=== PATIENT | male | born 1960 | race Caucasian/White ===

== ENCOUNTER 2020-08-06 09:36 | Outpatient (CLI) | payer BC, SELFPAY ==
[2020-08-06 10:10] LABS: Basophils Absolute Auto 0.1 K/mm3 (0.0-0.1); Basophils Percent Auto 1.7 % (0.2-1.2); Eosinophils Absolute Auto 0.2 K/mm3 (0-0.3); Eosinophils Percent Auto 4.2 % (0-4.4); Hematocrit 41.3 % (42.0-52.0); Hemoglobin 12.7 g/dL (14.0-18.0); Immature Granulocyte Absolute 0.01 K/mm3 (0.00-0.031); Immature Granulocyte Percent A 0.2 % (0-0.5); Lymphocytes Absolute Auto 1.43 K/mm3 (0.9-3.2); Lymphocytes Percent Auto 30.2 % (18.3-44.2); Mean Corpuscular HGB Conc 30.8 g/dl (32-36); Mean Corpuscular Volume 81.3 fl (80-100); Mean Platelet Volume 10.7 fl (7.4-10.4); Monocytes Absolute Auto 0.7 K/mm3 (0.1-0.6); Monocytes Percent Auto 14.6 % (2.6-8.5); Neutrophils Absolute Auto 2.3 K/mm3 (1.3-6.7); Neutrophils Percent Auto 49.1 % (45.5-73.1); Platelet Count Result 218 k/mm3 (150-375); Red Blood Count 5.08 M/mm3 (4.6-6.20); Red Cell Distribution Width 22.4 % (11.5-14.5); White Blood Count 4.7 K/mm3 (4.5-10.0)
[2020-08-06 10:18] LABS: Hemoglobin A1C 5.5 % (<5.7)
[2020-08-06 10:29] LABS: Alanine Aminotransferase 31 U/L (4-50); Albumin Level 4.1 g/dL (3.5-5.1); Alkaline Phosphatase 77 U/L (38-126); Anion Gap 6 mmol/L (8-16); Aspartate Amino Transferase 47 U/L (17-59); Blood Urea Nitrogen 18 mg/dL (9-20); Calcium 9.2 mg/dL (8.4-10.2); Carbon Dioxide 26 mmol/L (22-30); Chloride 106 mmol/L (98-107); Estimated Glomerular Filt Rate > 60; Glucose 106 mg/dL (75-110); Magnesium 1.6 mg/dL (1.6-2.3); Potassium 4.1 mmol/L (3.4-5.0); Sodium 138 mmol/L (137-145)
[2020-08-06 10:33] LABS: Iron 77 ug/dL (49-181)
[2020-08-06 10:44] LABS: Percent Iron Saturation 17 % (20-50)
[2020-08-06 10:50] LABS: Free T4 Free Thyroxine 0.77 ng/mL (0.78-2.19)
[2020-08-06 11:31] LABS: Folic Acid 6.4 ng/mL (2.76->20)
== END 2020-08-06 09:37 | disposition home or self-care (01) ==
PROVIDERS: PCP Internal Medicine; Visit Provider Internal Medicine
DX: D64.9 Anemia, unspecified (principal); I10 Essential (primary) hypertension; R73.9 Hyperglycemia, unspecified; E03.9 Hypothyroidism, unspecified
CPT/HCPCS: 36415; 80053; 82607; 82746; 83036; 83540; 83550; 83735; 84439; 84443; 85025

== ENCOUNTER 2020-11-12 08:29 | Emergency (ER) | payer BC, SELFPAY ==
[2020-11-12 08:38] VITALS: BP 153/89; PULSE 81; RESP 18; TEMP 37.1; O2SAT 96
--- NOTE | 2020-11-12 08:38 | ED.GENADULT ---
HPI - General Adult General Chief complaint: Skin/Abscess/Foreign Body Stated complaint: Cyst on back Time Seen by Provider: 11/12/20 08:38 Source: patient Mode of arrival: ambulatory Limitations: no limitations History of Present Illness HPI narrative: 60-year-old male patient presents to the [facility] with complaints of a wound to the upper back for the past week. Patient states he has been putting Neosporin on it and trying to clean it but has been getting bigger and worse. Denies any fevers, body aches or chills. Patient denies any history of diabetes. Related Data Home Medications Medication Instructions Recorded Confirmed metoprolol succinate [Toprol XL] 50 mg PO DAILY 11/12/20 11/12/20 Allergies Allergy/AdvReac Type Severity Reaction Status Date / Time No Known Allergies Allergy Verified 11/12/20 08:45 Review of Systems Review of Systems: Narrative: CONSTITUTIONAL: Denies fever, chills, or sweats. EYES: Denies visual changes, redness, or discharge. ENT: Denies rhinorrhea, congestion, sore throat, or otalgia. CARDIOVASCULAR: Denies chest pain, palpitations, or edema. RESPIRATORY: Denies cough or dyspnea. GASTROINTESTINAL: Denies abdominal pain, nausea, vomiting, or diarrhea. GENITOURINARY: Denies dysuria or hematuria. SKIN: Denies rash or itching. Positive wound to left upper back x1 week MUSCULOSKELETAL: Denies back pain, joint pain, or myalgia. NEUROLOGIC: Denies headache, numbness, or weakness. PSYCHIATRIC: Denies anxiety or depression. [facility] Past Medical History Medical History Arthritis Hypertension Prostate disease Surgical History Surgical History H/O hernia repair Family History Family History Mother Family history of Alzheimer's disease, Onset Age: 77 Sibling Family history of malignant neoplasm of breast in first degree relative Patient's sister is in good health Father Cerebrovascular accident, Onset Age: 62 Family history of thoracic aortic aneurysm Other Family history of malignant neoplasm Social History Social History Smoking status: Never smoker Second hand tobacco smoke exposure: No Alcohol intake: current Gender identity (if verbalized by the patient): Male Comments At the time of my signature I agree with nursing past medical history, surgical, social, and family history. There is no relevant family history pertinent to the presenting complaint. Exam Narrative: Exam Narrative: GENERAL: Well-appearing, well-nourished, and in no acute distress. HEAD: Normocephalic, atraumatic. EYES: PERRLA and EOMI. ENT: Nares clear, no rhinorrhea or epistaxis. Mucous membranes moist. NECK: Supple. No lymphadenopathy CHEST: Clear to auscultation. No respiratory distress. HEART: Regular rate and rhythm. No murmur heard. Normal peripheral pulses. ABDOMEN: Soft, nontender, nondistended, normal active bowel sounds. EXTREMITIES: Normal range of motion. No edema. SKIN: Warm, dry, no rash. Patient has approximately 4 x 4 centimeter infected cyst or abscess noted to the left upper back. There is some surrounding erythema. No warmth noted. It is slightly raised with a little bit of clear drainage coming from it. NEURO: No focal deficits. Alert and oriented x3. Course Vital Signs Vital signs: Vital Signs Temperature 37.1 C 11/12/20 08:38 Pulse Rate 81 11/12/20 08:38 Respiratory Rate 18 11/12/20 08:38 Blood Pressure 153/89 H 11/12/20 08:38 Pulse Oximetry 96 11/12/20 08:38 Temperature 37.1 C 11/12/20 08:38 Pulse Rate 81 11/12/20 08:38 Respiratory Rate 18 11/12/20 08:38 Blood Pressure 153/89 H 11/12/20 08:38 Pulse Oximetry 96 11/12/20 08:38 Vital signs reviewed The patient has been informed that they may have
== END 2020-11-12 09:10 | disposition home or self-care (01) ==
PROVIDERS: Emergency Provider Nurse Practitioner Family; PCP Internal Medicine
DX: L02.212 Cutaneous abscess of back [any part, except buttock and flank] (principal); M19.90 Unspecified osteoarthritis, unspecified site; I10 Essential (primary) hypertension
CPT/HCPCS: 10060; 87070; 87205; 99213; G0463

== ENCOUNTER 2021-03-11 14:13 | Outpatient (CLI) | payer OTHER, SELFPAY ==
[2021-03-11 14:51] LABS: Basophils Absolute Auto 0.1 K/mm3 (0.0-0.1); Basophils Percent Auto 1.2 % (0.2-1.2); Eosinophils Absolute Auto 0.1 K/mm3 (0-0.3); Eosinophils Percent Auto 2.2 % (0-4.4); Hemoglobin 7.2 g/dL (14.0-18.0); Immature Granulocyte Absolute 0.03 K/mm3 (0.00-0.031); Immature Granulocyte Percent A 0.5 % (0-0.5); Lymphocytes Absolute Auto 1.13 K/mm3 (0.9-3.2); Lymphocytes Percent Auto 19.3 % (18.3-44.2); Mean Corpuscular Hemoglobin 25.5 pg (26-34); Mean Corpuscular Volume 85.1 fl (80-100); Mean Platelet Volume 11.5 fl (7.4-10.4); Monocytes Absolute Auto 0.8 K/mm3 (0.1-0.6); Monocytes Percent Auto 14.3 % (2.6-8.5); Neutrophils Absolute Auto 3.7 K/mm3 (1.3-6.7); Neutrophils Percent Auto 62.5 % (45.5-73.1); Platelet Count Result 196 k/mm3 (150-375); Red Blood Count 2.82 M/mm3 (4.6-6.20); Red Cell Distribution Width 20.6 % (11.5-14.5); White Blood Count 5.9 K/mm3 (4.5-10.0)
[2021-03-11 15:00] LABS: Alanine Aminotransferase 26 U/L (4-50); Albumin Level 3.3 g/dL (3.5-5.1); Alkaline Phosphatase 110 U/L (38-126); Anion Gap 4 mmol/L (8-16); Aspartate Amino Transferase 82 U/L (17-59); Bilirubin,Total 1.6 mg/dL (0.2-1.3); Blood Urea Nitrogen 10 mg/dL (9-20); Calcium 8.5 mg/dL (8.4-10.2); Carbon Dioxide 29 mmol/L (22-30); Chloride 105 mmol/L (98-107); Cholesterol 135 mg/dL (0-200); Estimated Glomerular Filt Rate > 60; Glucose 115 mg/dL (75-110); HDL Direct 20 mg/dL; Potassium 3.8 mmol/L (3.4-5.0); Sodium 138 mmol/L (137-145); Triglycerides 71 mg/dL (<150)
[2021-03-11 15:09] LABS: LDL Cholesterol Direct 105 mg/dL
[2021-03-11 15:20] LABS: Iron 17 ug/dL (49-181)
[2021-03-11 15:29] LABS: Percent Iron Saturation 4 % (20-50); Prostate Specific Antigen < 0.1 ng/mL (< OR = 4.0)
[2021-03-11 15:37] LABS: Free T4 Free Thyroxine 0.95 ng/mL (0.78-2.19)
[2021-03-11 16:03] LABS: Folic Acid 4.2 ng/mL (2.76->20)
== END 2021-03-11 14:14 | disposition home or self-care (01) ==
PROVIDERS: PCP Internal Medicine; Visit Provider Internal Medicine
DX: D64.9 Anemia, unspecified (principal); E78.5 Hyperlipidemia, unspecified; E03.9 Hypothyroidism, unspecified; R53.83 Other fatigue; Z12.5 Encounter for screening for malignant neoplasm of prostate
CPT/HCPCS: 36415; 80053; 80061; 82607; 82746; 83540; 83550; 84153; 84439; 84443; 85025; G0103

== ENCOUNTER → 2021-03-16 07:53 | Outpatient (CLI) | payer OTHER, SELFPAY ==
--- NOTE | ~2021-03-16 | US_ITS ---
EXAMINATION: US abdomen complete DATE: 03/16/2021 08:32 INDICATION: Unspecified cirrhosis of liver. TECHNIQUE: Multiple grayscale and Doppler ultrasound images of the abdomen were obtained. COMPARISON: CT abdomen and pelvis 08/29/2016 FINDINGS: The liver demonstrates diffuse steatosis. There is normal flow in main portal vein. There i s a paraumbilical portacaval shunt. There is mild splenomegaly measuring 13.3 cm. The kidneys are nor mal in size. The gallbladder is normal in size and contains gallstones. No gallbladder wall thickenin g or sonographic [place] sign. The common duct is normal and measures 5 mm. The visualized portion of the abdominal aorta is normal in caliber. The inferior vena cava is not well-visualized. IMPRESSION: 1. Diffuse hepatic steatosis. 2. Portal venous hypertension. 3. Cholelithiasis. No evidence of acute cholecystitis. Reviewed, dictated and finalized at location B.
== END ==
PROVIDERS: PCP Internal Medicine; Visit Provider Internal Medicine
DX: K74.60 Unspecified cirrhosis of liver (principal); K80.20 Calculus of gallbladder without cholecystitis without obstruction; K76.0 Fatty (change of) liver, not elsewhere classified; K76.6 Portal hypertension
CPT/HCPCS: 76700

== ENCOUNTER 2021-03-25 07:52 | Outpatient (CLI) | payer OTHER, SELFPAY ==
[2021-03-25 08:04] LABS: Basophils Absolute Auto 0.1 K/mm3 (0.0-0.1); Basophils Percent Auto 1.3 % (0.2-1.2); Eosinophils Absolute Auto 0.3 K/mm3 (0-0.3); Eosinophils Percent Auto 4.7 % (0-4.4); Hematocrit 31.8 % (42.0-52.0); Hemoglobin 9.4 g/dL (14.0-18.0); Immature Granulocyte Absolute 0.02 K/mm3 (0.00-0.031); Immature Granulocyte Percent A 0.3 % (0-0.5); Lymphocytes Absolute Auto 1.92 K/mm3 (0.9-3.2); Lymphocytes Percent Auto 32.3 % (18.3-44.2); Mean Corpuscular HGB Conc 29.6 g/dl (32-36); Mean Corpuscular Hemoglobin 25.1 pg (26-34); Mean Corpuscular Volume 84.8 fl (80-100); Mean Platelet Volume 11.1 fl (7.4-10.4); Monocytes Absolute Auto 0.6 K/mm3 (0.1-0.6); Monocytes Percent Auto 10.6 % (2.6-8.5); Neutrophils Percent Auto 50.8 % (45.5-73.1); Platelet Count Result 284 k/mm3 (150-375); Red Blood Count 3.75 M/mm3 (4.6-6.20); White Blood Count 5.9 K/mm3 (4.5-10.0)
[2021-03-25 08:22] LABS: Hypochromasia 2+ (NORMAL); Platelet Estimate Adequate (Adequate)
[2021-03-25 08:27] LABS: Anisocytosis 1+ (NORMAL); Ovalocytes 1+ (NORMAL); Stomatocytes 1+ (NORMAL); Tear Drop Cells 1+ (NORMAL)
[2021-03-25 08:43] LABS: Alanine Aminotransferase 30 U/L (4-50); Albumin Level 3.7 g/dL (3.5-5.1); Alkaline Phosphatase 81 U/L (38-126); Anion Gap 5 mmol/L (8-16); Aspartate Amino Transferase 73 U/L (17-59); Blood Urea Nitrogen 12 mg/dL (9-20); Calcium 9.5 mg/dL (8.4-10.2); Carbon Dioxide 29 mmol/L (22-30); Chloride 106 mmol/L (98-107); Estimated Glomerular Filt Rate > 60; Glucose 119 mg/dL (75-110); Iron 23 ug/dL (49-181); Potassium 4.3 mmol/L (3.4-5.0); Sodium 140 mmol/L (137-145)
[2021-03-25 09:15] LABS: Percent Iron Saturation 5 % (20-50)
[2021-03-25 10:04] LABS: Folic Acid 5.2 ng/mL (2.76->20)
== END 2021-03-25 07:53 | disposition home or self-care (01) ==
PROVIDERS: PCP Internal Medicine; Visit Provider Internal Medicine
DX: D64.9 Anemia, unspecified (principal); K74.60 Unspecified cirrhosis of liver
CPT/HCPCS: 36415; 80053; 82607; 82746; 83540; 83550; 85025

== ENCOUNTER 2021-07-01 14:08 | Outpatient (CLI) | payer OTHER, SELFPAY ==
[2021-07-01 14:33] LABS: Basophils Percent Auto 1.2 % (0.2-1.2); Eosinophils Absolute Auto 0.1 K/mm3 (0-0.3); Eosinophils Percent Auto 3.1 % (0-4.4); Hematocrit 37.9 % (42.0-52.0); Hemoglobin 11.5 g/dL (14.0-18.0); Immature Granulocyte Absolute 0.01 K/mm3 (0.00-0.031); Immature Granulocyte Percent A 0.3 % (0-0.5); Lymphocytes Absolute Auto 1.21 K/mm3 (0.9-3.2); Lymphocytes Percent Auto 37.1 % (18.3-44.2); Mean Corpuscular HGB Conc 30.3 g/dl (32-36); Mean Corpuscular Hemoglobin 24.8 pg (26-34); Mean Corpuscular Volume 81.9 fl (80-100); Mean Platelet Volume 9.5 fl (7.4-10.4); Monocytes Absolute Auto 0.5 K/mm3 (0.1-0.6); Neutrophils Absolute Auto 1.4 K/mm3 (1.3-6.7); Neutrophils Percent Auto 42.3 % (45.5-73.1); Platelet Count Result 128 k/mm3 (150-375); Red Blood Count 4.63 M/mm3 (4.6-6.20); Red Cell Distribution Width 18.8 % (11.5-14.5); White Blood Count 3.3 K/mm3 (4.5-10.0)
[2021-07-01 16:47] LABS: Alanine Aminotransferase 54 U/L (4-50); Alkaline Phosphatase 126 U/L (38-126); Anion Gap 11 mmol/L (8-16); Aspartate Amino Transferase 128 U/L (17-59); Bilirubin,Total 2.2 mg/dL (0.2-1.3); Blood Urea Nitrogen 7 mg/dL (9-20); Calcium 8.9 mg/dL (8.4-10.2); Carbon Dioxide 26 mmol/L (22-30); Chloride 105 mmol/L (98-107); Cholesterol 211 mg/dL (0-200); Estimated Glomerular Filt Rate > 60; Glucose 106 mg/dL (65-110); HDL Direct 65 mg/dL; Potassium 3.5 mmol/L (3.4-5.0); Sodium 142 mmol/L (137-145); Triglycerides 95 mg/dL (<150)
[2021-07-01 16:48] LABS: Iron 47 ug/dL (49-181)
[2021-07-01 17:06] LABS: LDL Cholesterol Direct 104 mg/dL
[2021-07-01 17:39] LABS: Percent Iron Saturation 11 % (20-50)
[2021-07-01 18:34] LABS: Folic Acid 2.1 ng/mL (2.76->20)
== END 2021-07-01 14:09 | disposition home or self-care (01) ==
LOC: ANHLAB 14:10
PROVIDERS: PCP Internal Medicine; Visit Provider Internal Medicine
DX: R53.83 Other fatigue (principal); K74.60 Unspecified cirrhosis of liver; D64.9 Anemia, unspecified; E78.5 Hyperlipidemia, unspecified
CPT/HCPCS: 36415; 80053; 80061; 82607; 82746; 83540; 83550; 84443; 85025

== ENCOUNTER 2021-07-26 20:51 | Observation (INO) | payer OTHER, SELFPAY ==
[2021-07-26 21:07] VITALS: BP 156/60; PULSE 95; RESP 18; TEMP 37.7; O2SAT 98
[2021-07-26 21:40] LABS: Basophils Percent Auto 0.4 % (0.2-1.2); Eosinophils Percent Auto 0.1 % (0-4.4); Hematocrit 31.4 % (42.0-52.0); Hemoglobin 9.7 g/dL (14.0-18.0); Immature Granulocyte Absolute 0.05 K/mm3 (0.00-0.031); Immature Granulocyte Percent A 0.7 % (0-0.5); Immature Platelet Fraction Pct 8.3 % (0.9-11.2); Lymphocytes Absolute Auto 0.83 K/mm3 (0.9-3.2); Lymphocytes Percent Auto 10.8 % (18.3-44.2); Mean Corpuscular HGB Conc 30.9 g/dl (32-36); Mean Corpuscular Hemoglobin 25.5 pg (26-34); Mean Corpuscular Volume 82.4 fl (80-100); Monocytes Absolute Auto 0.7 K/mm3 (0.1-0.6); Monocytes Percent Auto 9.1 % (2.6-8.5); Neutrophils Percent Auto 78.9 % (45.5-73.1); Platelet Count Result 136 k/mm3 (150-375); Red Blood Count 3.81 M/mm3 (4.6-6.20); Red Cell Distribution Width 22.9 % (11.5-14.5); White Blood Count 7.7 K/mm3 (4.5-10.0)
[2021-07-26 21:48] LABS: INR 1.8; Prothrombin Time 20.2 Seconds (11.1-14.7)
[2021-07-26 21:49] LABS: Partial Thromboplastin Time 37.5 SECONDS (22.3-36.8)
[2021-07-26 21:50] LABS: Alanine Aminotransferase 49 U/L (4-50); Albumin Level 3.8 g/dL (3.5-5.1); Alkaline Phosphatase 93 U/L (38-126); Anion Gap 9 mmol/L (8-16); Aspartate Amino Transferase 124 U/L (17-59); Bilirubin,Total 6.1 mg/dL (0.2-1.3); Blood Urea Nitrogen 27 mg/dL (9-20); Calcium 8.7 mg/dL (8.4-10.2); Carbon Dioxide 27 mmol/L (22-30); Chloride 98 mmol/L (98-107); Estimated CRCL calculation 129 ml/min; Estimated Glomerular Filt Rate > 60; Glucose 124 mg/dL (65-110); Potassium 3.2 mmol/L (3.4-5.0); Sodium 134 mmol/L (137-145)
[2021-07-27] VITALS (27 sets, daily range): BP systolic 120–176; BP diastolic 52–96; PULSE 73–110; RESP 12–24; TEMP 36.4–37.7; O2SAT 94–100; BMI 43.0
--- NOTE | 2021-07-27 00:33 | ED.GIBLEED ---
HPI - GI Bleed General Chief complaint: GI Bleed Stated complaint: bleeding ulcer Time Seen by Provider: 07/27/21 00:29 Source: patient Mode of arrival: ambulatory Limitations: no limitations History of Present Illness HPI Narrative: Patient is a 60-year-old male complaining of dark tarry stool and nausea and vomiting that started Sunday. Patient states that he had blood in his vomitus and today. Patient states that he had abdominal pain earlier but now resolved. Patient denies being on any oral anticoagulants. Patient states that he has a history of bleeding ulcer , and was seen evaluated by Dr. Hollis in the past. Patient denies any chest pain, shortness of breath, fever or chills. Related Data Allergies Allergy/AdvReac Type Severity Reaction Status Date / Time No Known Allergies Allergy Verified 07/27/21 00:38 Review of Systems Review of Systems: All systems reviewed & are unremarkable except as noted in HPI and below Constitutional: Constitutional: Denies body ache(s), Denies chills, Denies excessive sweating, Denies fatigue, Denies fever(s), Denies headache(s), Denies lethargy, Denies malaise, Denies weakness and Denies weight loss Eyes: Eyes: Denies blurry vision, Denies change in vision and Denies loss of vision ENT: Denies dizziness, Denies ear discharge, Denies headache(s), Denies lip swelling, Denies epistaxis, Denies nasal congestion, Denies neck pain, Denies throat swelling and Denies tongue swelling Cardiovascular: Cardiovascular: Denies chest pain, Denies chest pain at rest, Denies chest pain with activity, Denies diaphoresis, Denies rapid heart rate, Denies edema, Denies irregular heart rhythm, Denies lightheadedness, Denies palpitations, Denies dyspnea and Denies dyspnea on exertion Respiratory: Respiratory: Denies chest congestion, Denies cough, Denies hemoptysis, Denies dyspnea and Denies dyspnea on exertion Gastrointestinal: Gastrointestinal: Denies abdominal pain, Denies hematochezia and Denies diarrhea Musculoskeletal: Musculoskeletal: Denies abnormal gait, Denies deformity, Denies joint swelling, Denies limited range of motion, Denies neck pain and Denies numbness Neurologic: Denies Abnormal speech present, Denies abnormal gait, Denies confusion, Denies dizziness, Denies headache(s), Denies focal weakness, Denies loss of vision, Denies numbness, Denies Other visual disturbances, Denies Sensory deficit (Neuro) and Denies weakness Psychiatric: Psychiatric: Denies confusion, Denies depression, Denies auditory hallucinations, Denies homicidal ideation and Denies suicidal ideation Endocrine: Endocrine: Denies cold intolerance, Denies excessive sweating, Denies fatigue, Denies heat intolerance and Denies palpitations Hematologic/Lymphatic: Hematologic/Lymphatic: Denies easy bleeding and Denies easy bruising Allergic/Immunologic: Allergic/Immunologic: Denies lip swelling, Denies throat swelling and Denies tongue swelling PMFSH Past Medical History Medical History Arthritis Hypertension Prostate disease Surgical History Surgical History H/O hernia repair Family History Family History Mother Family history of Alzheimer's disease, Onset Age: 77 Sibling Family history of malignant neoplasm of breast in first degree relative Patient's sister is in good health Father Cerebrovascular accident, Onset Age: 62 Family history of thoracic aortic aneurysm Other Family history of malignant neoplasm Social History Social History Smoking status: Never smoker Second hand tobacco smoke exposure: No Alcohol intake: current Gender identity (if verbalized by the patient): Male Comments Past medical history: GI bleed, hypertension, alcohol abuse Social history: Non-smoke
--- NOTE | 2021-07-27 00:39 | PC.NURSE ---
Pt unable to confirm medication or medical Hx. States My doctor put me on a bunch of pills, but i got tired of taking them
[2021-07-27] MEDS: SODIUM CHLORIDE 0.9% IV 1,000 ML 999 ML IV CONT (01:10)
[2021-07-27] MEDS: PROMETHAZINE HCL 25 MG/ML AMPUL 12.5 MG IV PUSH (01:10)
[2021-07-27] MEDS: PANTOPRAZOLE SODIUM IV 40 MG VIAL 80 MG IV PUSH (01:12)
--- NOTE | 2021-07-27 04:29 | PC.NURSE ---
This patient, Kate Klein, was admitted to IMU Room 204-01 on 07/27/21 at 0420. Patient family oriented to hospital policies and general routines including// ID bracelet, bed and alarms, visiting hours, pain management, procedures, bathroom and other care routines, personal items, smoking policy, room service/diet, and visiting hours. Information on how to activate the Rapid Response Team has been discussed. Patient/Family are encouraged to report perceived risks to care and to ask questions if they do not understand what they are told or what they should do.
[2021-07-27 04:56] LABS: Hematocrit 29.4 % (42.0-52.0)
[2021-07-27] MEDS: LACTATED RINGERS 1,000 ML 125 ML IV CONT (05:00)
--- NOTE | 2021-07-27 05:12 | PM.IMHP ---
H&P: HPI History of Present Illness Date/Time: 07/27/21 05:12 Chief Complaint: Hematemesis Narrative: This is a 60-year-old male with past medical history significant for arthritis, hypertension, benign prostatic hyperplasia, alcohol dependence, patient drinks a 5th of whiskey daily. According to the patient he had some lab work done about a month ago and his doctor asked him to come to the hospital however he did not come to the hospital he presented today to the emergency room after he has been having episodes of melena and hematemesis for the last 3-4 days he was feeling dizzy, lightheaded having nausea and vomiting as well and having abdominal discomfort. He has seen Dr. Alvarez in the past and states that has history of bleeding ulcer as well. Patient was seen in his primary care physician's office due to ongoing melena and had been advised to follow-up with his GI doctor but he did not follow-up. Preliminary workup shows a hemoglobin of 9.7 and repeat hemoglobin is 9. Review of Systems Review of Systems: Nausea vomiting abdominal discomfort hematemesis and melena Constitutional: Constitutional: Denies chills, Denies fever(s), Denies malaise and Denies weakness Eyes: Eyes: Denies change in vision ENT: Denies dysphagia, Denies nasal congestion, Denies nasal discharge, Denies nasal obstruction and Denies odynophagia Cardiovascular: Cardiovascular: Denies chest pain at rest, Denies irregular heart rhythm, Denies claudication, Denies leg edema, Denies radiating jaw, neck or arm pain, Denies palpitations, Denies dyspnea and Denies dyspnea on exertion Respiratory: Respiratory: Denies cough and Denies dyspnea Gastrointestinal: Gastrointestinal: Reports melena, Denies heartburn, Reports nausea, Reports vomiting and Reports hematemesis Genitourinary: Genitourinary: Reports no additional male genitourinary complaints Musculoskeletal: Musculoskeletal: Reports no additional musculoskeletal complaints Integumentary/Breasts: Skin/Breast: Reports system reviewed and no additional complaints, except as docu Neurologic: Reports system reviewed and no additional complaints, except as documented Psychiatric: Psychiatric: Reports no additional psychiatric complaints Endocrine: Endocrine: Reports no additional endocrine complaints Hematologic/Lymphatic: Hematologic/Lymphatic: Reports no additional hematologic/lymphatic complaints Allergic/Immunologic: Allergic/Immunologic: Reports no additional allergic/immunologic complaints PMFSH Past Medical History Medical History Arthritis Hypertension Prostate disease Surgical History Surgical History H/O hernia repair Family History Family History (Updated 07/27/21 @ 04:37 by Kristine Corrales RN) Mother Family history of Alzheimer's disease, Onset Age: 77 Sibling Patient's sister is in good health Family history of malignant neoplasm of breast in first degree relative Father Family history of thoracic aortic aneurysm Cerebrovascular accident, Onset Age: 62 Social History Social History Smoking status: Never smoker Second hand tobacco smoke exposure: No Alcohol intake: current Drinks per week: 119 Substance use: current Substance use type: marijuana Gender identity (if verbalized by the patient): Male Spiritual care concerns: No Meds Home Medications and Allergies Home Medications Medication Instructions Recorded Confirmed Type albuterol sulfate 90 mcg/actuation 1 puff INHALATION Q4H PRN #8.5 g 03/15/21 07/27/21 Rx aerosol inhaler alprazolam 0.5 mg tablet 0.5 mg PO QHS PRN #30 tablet 03/15/21 07/27/21 Rx pantoprazole 40 mg tablet,delayed 40 mg PO QAM #90 tablet 03/15/21 07/27/21 Rx release Allergies Allergy/AdvReac Type Severity Reaction Status Date / Time No Meme
[2021-07-27] MEDS: LORazepam INJ (*CRX) 2 MG/ML VIAL 1 MG IV PUSH ×3 (05:54→23:38)
[2021-07-27] MEDS: SODIUM CHLORIDE 0.9% IV 250 ML 30 ML IV CONT (05:55)
[2021-07-27] MEDS: TUBING, BLOOD PLUM PUMP TUBING 1 EACH XX (05:55)
[2021-07-27] MEDS: THIAMINE HCL 200 MG/2 ML VIAL 100 MG IV PUSH (10:33)
[2021-07-27] MEDS: FOLIC ACID 1 MG/0.2 ML INJ IV PUSH (10:33)
--- NOTE | 2021-07-27 10:44 | WPDGICN ---
Assessment and Plan Assessment and plan (1) Acute GI bleeding: Code(s): K92.2 - Gastrointestinal hemorrhage, unspecified Status: Acute Assessment and Plan: Patient with acute GI bleeding manifested by melena and hematemesis. Plan is for IV proton pump inhibitors an EGD will be performed to evaluate for ulcers and exclude varices. (2) Melena: Code(s): K92.1 - Melena Status: Acute Assessment and Plan: Melenic stools along with hematemesis suggest upper GI source for GI blood loss. IV PPI therapy encouraged monitor hemoglobin transfuse if necessary. EGD later today. (3) ETOH abuse: Code(s): F10.10 - Alcohol abuse, uncomplicated Status: Acute Assessment and Plan: Patient has ongoing alcohol abuse known to have alcohol cirrhosis. Alcohol rehab strongly encouraged. Abstinence encouraged (4) Cirrhosis: Code(s): K74.60 - Unspecified cirrhosis of liver Status: Acute Assessment and Plan: patient felt to have alcoholic cirrhosis of liver. This puts him at risk for varices this will be evaluated time of EGD. Alcohol avoidance is strongly encouraged supportive care. GI Consult Note Consult date/time: 07/27/21 10:44 HPI: Kate Klein is a 60 year old male I am asked to see for GI bleeding. Patient has a long history of alcohol abuse. Known to have alcoholic cirrhosis of the liver. Several years ago had a gastric ulcer. He drinks about a 5th of whiskey a day. Over the last 3-4 days he has had black melenic stools and episodes of hematemesis. For this reason he presented the emergency room was admitted for further evaluation. He has been drinking up until the time of admission the hospital. In the emergency room only a modest decline in hemoglobin was identified. Review of Systems Review of Systems: All systems reviewed & are unremarkable except as noted in HPI and below PMFSH Past Medical History Medical History Arthritis Hypertension Prostate disease Surgical History Surgical History H/O hernia repair Family History Family History (Updated 07/27/21 @ 04:37 by Kristine Corrales RN) Mother Family history of Alzheimer's disease, Onset Age: 77 Sibling Patient's sister is in good health Family history of malignant neoplasm of breast in first degree relative Father Family history of thoracic aortic aneurysm Cerebrovascular accident, Onset Age: 62 Social History Social History Smoking status: Never smoker Second hand tobacco smoke exposure: No Alcohol intake: current Drinks per week: 119 Substance use: current Substance use type: marijuana Gender identity (if verbalized by the patient): Male Spiritual care concerns: No Meds Home Medications and Allergies Home Medications Medication Instructions Recorded Confirmed Type albuterol sulfate 90 mcg/actuation 1 puff INHALATION Q4H PRN #8.5 g 03/15/21 07/27/21 Rx aerosol inhaler alprazolam 0.5 mg tablet 0.5 mg PO QHS PRN #30 tablet 03/15/21 07/27/21 Rx pantoprazole 40 mg tablet,delayed 40 mg PO QAM #90 tablet 03/15/21 07/27/21 Rx release Allergies Allergy/AdvReac Type Severity Reaction Status Date / Time No Known Allergies Allergy Verified 07/27/21 00:38 Vital Signs Vital Signs - 24 hr 07/26/21 21:07 07/27/21 00:30 07/27/21 02:01 Temperature 99.8 F H Pulse Rate 95 95 89 Respiratory Rate 18 19 19 Blood Pressure 156/60 H 132/96 H 148/63 H Pulse Oximetry 98 98 98 07/27/21 03:01 07/27/21 03:02 07/27/21 03:04 Temperature Pulse Rate 86 87 110 H Respiratory Rate Blood Pressure 147/69 H 162/92 H 176/74 H Pulse Oximetry 07/27/21 03:35 07/27/21 04:17 07/27/21 04:33 Temperature 99.5 F Pulse Rate 87 93 96 Respiratory Rate 21 H 20 24 H Blood
[2021-07-27] MEDS: LACTATED RINGERS 1,000 ML 150 ML IV CONT (12:31)
[2021-07-27] MEDS: BENZOCAINE (*SP) 60 ML SPRAY CAN (HURRICAINE) 1 SPRAY MUCOUS MEM (13:04)
[2021-07-27 17:37] LABS: Hematocrit 29.4 % (42.0-52.0); Hemoglobin 9.1 g/dL (14.0-18.0)
--- NOTE | 2021-07-27 17:52 | PM.IMPN ---
Progress Note: A&P Assessment and Plan (1) Acute GI bleeding: Code(s): K92.2 - Gastrointestinal hemorrhage, unspecified Status: Acute (2) Gastric ulcer: Code(s): K25.9 - Gastric ulcer, unspecified as acute or chronic, without hemorrhage or perforation Status: Acute (3) Anemia: Qualifiers: Anemia type: unspecified type Qualified Code(s): D64.9 - Anemia, unspecified Code(s): D64.9 - Anemia, unspecified Status: Acute (4) Obesity: Code(s): E66.9 - Obesity, unspecified Status: Acute (5) ETOH abuse: Code(s): F10.10 - Alcohol abuse, uncomplicated Status: Acute (6) DVT prophylaxis: Code(s): Z29.9 - Encounter for prophylactic measures, unspecified Status: Acute Assessment and Plan: SCDs Additional Plan Patient presents with complaints of melena. Hemoglobin was 9.7 but has remained stable at this range. GI was consulted and patient underwent EGD today which revealed a gastric ulcer. No evidence of alcohol withdrawal but we will start CIWA protocol. Thiamine and folate have been started. He has Ativan available as needed for signs or symptoms of withdrawal. He was educated about the benefits of abstain from alcohol use and the benefits of healthy lifestyle. Continue to monitor H&H for stability. If he remains stable, plan discharge tomorrow. Subjective Date/time seen: 07/27/21 17:52 Interval history: 60yo male with hx of ongoing alcoholism here for GI bleed. Patient feeling well. No nausea or vomiting. No chest pain or shortness of breath. Denies any tremors or diaphoresis. He does get these symptoms when he stops drinking. He has never had an alcohol withdrawal seizure. He drinks half a gallon of [employer] 7 every 3 days. Exam Narrative: AF 99.8 130/52 84 12 97% ra Gen - NARD Chest - CTA bilaterally, nml RR CV - RRR S1/S2 with a 2/6 systolic murmur USB; Tele showing occasional PVCs Abd - Soft, NT/ND, Positive BS Ext - trace pedal edema Neuro - Alert and oriented. Nonfocal exam. Psych - Nml mood and affect; no diaphoresis or tremors Skin - Warm and dry Objective Data Vital Signs Vital Signs: Vital Signs - 24 hr 07/26/21 21:07 07/27/21 00:30 07/27/21 02:01 Temperature 99.8 F H Pulse Rate 95 95 89 Respiratory Rate 18 19 19 Blood Pressure 156/60 H 132/96 H 148/63 H Pulse Oximetry 98 98 98 07/27/21 03:01 07/27/21 03:02 07/27/21 03:04 Temperature Pulse Rate 86 87 110 H Respiratory Rate Blood Pressure 147/69 H 162/92 H 176/74 H Pulse Oximetry 07/27/21 03:35 07/27/21 04:17 07/27/21 04:33 Temperature 99.5 F Pulse Rate 87 93 96 Respiratory Rate 21 H 20 24 H Blood Pressure 153/75 H 145/70 H 151/74 H Pulse Oximetry 95 99 97 07/27/21 04:36 07/27/21 05:48 07/27/21 06:00 Temperature 99.5 F 98.6 F Pulse Rate 96 89 90 Respiratory Rate 24 H 18 Blood Pressure 151/74 H 140/75 Pulse Oximetry 97 99 07/27/21 06:07 07/27/21 07:07 07/27/21 08:00 Temperature 98.5 F 98.6 F 98.7 F Pulse Rate 91 92 87 Respiratory Rate 16 24 H 22 H Blood Pressure 120/67 125/74 137/79 Pulse Oximetry 94 99 97 07/27/21 08:28 07/27/21 10:00 07/27/21 12:00 Temperature 98.9 F Pulse Rate 91 74 78 Respiratory Rate 20 Blood Pressure 139/68 Pulse Oximetry 96 07/27/21 12:36 07/27/21 13:21 07/27/21 13:31 Temperature 97.5 F L Pulse Rate 93 85 80 Respiratory Rate 20 20 20 Blood Pressure 145/65 H 120/56 L 131/61 Pulse Oximetry 94 98 99 07/27/21 13:41 07/27/21 14:00 07/27/21 14:11 Temperature 98.9 F Pulse Rate 77 82 84 Respiratory Rate 20 16 Blood Pressure 134/60 151/82 H Pulse Oximetry 100 96 07/27/21 16:00 Temperature 99.8 F H Pulse Rate 84 Respiratory Rate 12 Blood Pressure 130/52 L Pulse Oximetry 97 Intake/Output Intake/Output: Intake & Output 07/24/21 07/25/21 07/26/2101/21 23:59 23:59 23:59 23:59 Intake Total 1450 Balance 1450 Med
[2021-07-27] MEDS: PANTOPRAZOLE 40 MG TABLET PO (20:46)
[2021-07-27 23:59] LABS: Hematocrit 30.7 % (42.0-52.0); Hemoglobin 9.1 g/dL (14.0-18.0)
[2021-07-28] VITALS (7 sets, daily range): BP systolic 107–156; BP diastolic 59–66; PULSE 78–87; RESP 18–20; TEMP 36.3–36.8; O2SAT 93–98
[2021-07-28 05:31] LABS: Hematocrit 27.7 % (42.0-52.0); Hemoglobin 8.6 g/dL (14.0-18.0); Immature Platelet Fraction Pct 9.3 % (0.9-11.2); Mean Corpuscular Hemoglobin 26.6 pg (26-34); Mean Corpuscular Volume 85.8 fl (80-100); Mean Platelet Volume 12.3 fl (7.4-10.4); Platelet Count Result 106 k/mm3 (150-375); Red Blood Count 3.23 M/mm3 (4.6-6.20); Red Cell Distribution Width 22.8 % (11.5-14.5); White Blood Count 5.4 K/mm3 (4.5-10.0)
[2021-07-28] MEDS: FOLIC ACID 1 MG/0.2 ML INJ IV PUSH (09:29)
[2021-07-28] MEDS: THIAMINE HCL 200 MG/2 ML VIAL 100 MG IV PUSH (09:30)
[2021-07-28] MEDS: PANTOPRAZOLE 40 MG TABLET PO (09:30)
--- NOTE | 2021-07-28 09:32 | WPDANESPN ---
Anes - Prog Note Post-Op Date/Time: 07/28/21 09:32 Cardiovascular status: normal Respiratory status: normal Airway patency: baseline Mental status: baseline Post-Op hydration status: normal Vital Signs: Last Vital Signs Temp 36.3 C L 07/28/21 08:00 Pulse 82 07/28/21 08:00 Resp 20 07/28/21 08:00 BP 134/66 07/28/21 08:00 Pulse Ox 94 07/28/21 08:00 Pain Score (VAS): 0 I/O: Intake & Output 07/27/21 07/28/21 07/28/21 23:59 07:59 15:59 Intake Total 700 Balance 700 Laboratory Tests 07/28/21 04:57 07/26/21 21:29 07/27/21 07/27/21 07/28/21 17:29 23:51 04:57 WBC 5.4 RBC 3.23 L Hgb 9.1 L 9.1 L 8.6 L Hct 29.4 L 30.7 L 27.7 L MCV 85.8 MCH 26.6 MCHC 31.0 L RDW 22.8 H Plt Count 106 L MPV 12.3 H % Immature Plt Fraction 9.3 Post-procedural complaints: none Patient Feedback: Patient satisfied with anesthetic care.
--- NOTE | 2021-07-28 09:48 | WPDGIPROGNO ---
Progress Note: A&P Assessment and Plan (1) Gastric ulcer: Code(s): K25.9 - Gastric ulcer, unspecified as acute or chronic, without hemorrhage or perforation Status: Acute Assessment and Plan: Gastric ulcer identified by recent EGD appears to be benign. Plan is to keep patient on PPI therapy. She should avoid nonsteroidal anti-inflammatory agents. Follow-up EGD is suggested in 2 months. (2) Acute GI bleeding: Code(s): K92.2 - Gastrointestinal hemorrhage, unspecified Status: Acute Assessment and Plan: No evidence for continued bleeding. Plan to advance to a bland diet. Keep on PPI therapy. Discharge soon. (3) Anemia: Qualifiers: Anemia type: unspecified type Qualified Code(s): D64.9 - Anemia, unspecified Code(s): D64.9 - Anemia, unspecified Status: Acute Assessment and Plan: Patient has anemia. Likely multifactorial. A component of this likely from recent GI blood loss. He should remain on PPI therapy. Avoid NSAIDs. (4) Obesity: Code(s): E66.9 - Obesity, unspecified Status: Acute Assessment and Plan: Patient obese. Light weight loss strongly encouraged. (5) ETOH abuse: Code(s): F10.10 - Alcohol abuse, uncomplicated Status: Acute Assessment and Plan: Alcohol rehab in avoidance strongly encouraged. (6) Cirrhosis: Code(s): K74.60 - Unspecified cirrhosis of liver Status: Acute Assessment and Plan: Patient known to have cirrhosis on the basis of alcoholism. Supportive care at this point. Patient is strongly encouraged to stop alcohol Subjective Date/time seen: 07/28/21 09:48 Patient alert and comfortable this morning. No additional bleeding noted. He denies abdominal pain. He states he has relatively poor appetite. Review of Systems Review of Systems: All systems reviewed & are unremarkable except as noted in HPI and below Exam Narrative: Physical exam reveals patient be alert. Comfortable at rest. HEENT exam reveals no icterus. Lungs are clear to auscultation and percussion. Heart is without murmur or extra sounds. Abdomen is obese bowel sounds are present soft no localized tenderness. Objective Data Vital Signs Vital Signs: Vital Signs - 24 hr 07/27/21 10:00 07/27/21 12:00 07/27/21 12:36 Temperature 97.5 F L Pulse Rate 74 78 93 Respiratory Rate 20 Blood Pressure 145/65 H Pulse Oximetry 94 07/27/21 13:21 07/27/21 13:31 07/27/21 13:41 Temperature Pulse Rate 85 80 77 Respiratory Rate 20 20 20 Blood Pressure 120/56 L 131/61 134/60 Pulse Oximetry 98 99 100 07/27/21 14:00 07/27/21 14:11 07/27/21 16:00 Temperature 98.9 F 99.8 F H Pulse Rate 82 84 84 Respiratory Rate 16 12 Blood Pressure 151/82 H 130/52 L Pulse Oximetry 96 97 07/27/21 18:00 07/27/21 20:00 07/27/21 22:00 Temperature 97.6 F Pulse Rate 82 84 82 Respiratory Rate 20 Blood Pressure 140/83 Pulse Oximetry 98 07/28/21 00:00 07/28/21 02:00 07/28/21 04:00 Temperature 98.2 F 98.3 F Pulse Rate 84 78 81 Respiratory Rate 20 20 Blood Pressure 135/63 156/66 H Pulse Oximetry 96 97 07/28/21 06:00 07/28/21 08:00 Temperature 97.4 F L Pulse Rate 82 82 Respiratory Rate 20 Blood Pressure 134/66 Pulse Oximetry 94 Intake/Output Intake/Output: Intake & Output 07/25/21 07/26/21 07/27/21 07/28/21 23:59 23:59 23:59 23:59 Intake Total 1450 700 Balance 1450 700 Meds/Results Medications: Active Medications Generic Name Dose Route Start Last Admin Trade Name Freq PRN Reason Stop Dose Admin Albuterol 1 puff 07/27/21 05:30 Albuterol Sulfate (*Sp) Aerosol 1 Puff INHALATION Q4H PRN shortness of breath or wheezing Folic Acid 1 mg 07/27/21 09:00 07/28/21 09:29 Folic Acid 1 Mg/0.2 Ml Inj IV PUSH 1 mg QAM SHASHA Administration Lorazepam 1 mg 07/27/21 05:19 07/27/21 23:38 Lorazepam Inj (*Crx) 2 Mg/Ml Vial IV P
--- NOTE | 2021-07-28 11:49 | PM.DS ---
DS: Admitting Diagnosis Admitting Diagnosis Melena DS: Discharge Diagnosis Discharge Diagnosis (1) Acute GI bleeding: Code(s): K92.2 - Gastrointestinal hemorrhage, unspecified Status: Acute (2) Gastric ulcer: Code(s): K25.9 - Gastric ulcer, unspecified as acute or chronic, without hemorrhage or perforation Status: Acute (3) Anemia: Qualifiers: Anemia type: unspecified type Qualified Code(s): D64.9 - Anemia, unspecified Code(s): D64.9 - Anemia, unspecified Status: Acute (4) Obesity: Code(s): E66.9 - Obesity, unspecified Status: Acute (5) ETOH abuse: Code(s): F10.10 - Alcohol abuse, uncomplicated Status: Acute DS: Summary Hospital Course Reason for hospitalization: 60yo male with hx of ongoing alcoholism here for GI bleed. Please see H&P for details. Hospital Course: Patient presents with complaints of melena. Hemoglobin was 9.7 but was checked serially. Hemoglobin was 9.7 but did dropped to 8.6 but no evidence of continued blood loss. GI was consulted and patient underwent EGD 07/27 which revealed a gastric ulcer felt to be the cause of the GI bleed. No varices. He was treated with Protonix. He was monitored with CIWA protocol but no evidence of alcohol withdrawal. Thiamine and folate was started. He had Ativan available and did require Ativan at times. He was educated about the benefits of abstain from alcohol use and the benefits of healthy lifestyle. Murmur appreciated on exam so will obtain Echo as outpatient. Iron added at discharge. He did well and was able to be discharged on 07/28. Status at Discharge Cognitive/behavioral status at discharge: stable Time Spent with Patient Time attestation: Total time spent providing and/or coordinating discharge services: 32 minutes Time spent: Greater than 30 minutes Exam Narrative: AF 97.4 134/66 82 20 94% ra Gen - NARD Chest - CTA bilaterally, nml RR CV - RRR S1/S2 with a 2/6 systolic murmur USB; Tele showing occasional PVCs Abd - Soft, NT/ND, Positive BS Ext - no pedal edema Psych - Nml mood and affect; no diaphoresis or tremors Skin - Warm and dry DS: Data Data Completed and Pending Pending studies at discharge: Pending at discharge 07/27/21 13:13 Surgical [PTH] Routine Labs on day of discharge: Labs from last 24 hours 07/28/21 07/27/21 07/27/21 04:57 23:51 17:29 WBC 5.4 RBC 3.23 L Hgb 8.6 L 9.1 L 9.1 L Hct 27.7 L 30.7 L 29.4 L MCV 85.8 MCH 26.6 MCHC 31.0 L RDW 22.8 H Plt Count 106 L MPV 12.3 H % Immature Plt Fraction 9.3 Discharge Plan Discharge Attending physician on discharge: Haroldo Kirkpatrick Consulting providers: Edmundo Hobson Discharging Clinician: Haroldo Kirkpatrick Anticipated Discharge Date/Time: 07/28/21 12:02 Patient Disposition: Home, Self-Care Activity: as tolerated Diet: regular Discharge Instructions: Please avoid large gathering, wear face coverings in public and practice social distance. Stop all alcohol use. Take precautions to avoid falls. Rise slowly from a lying or sitting position. Pause before standing or walking. Contact your doctor or call 911 and come to the Emergency Room if you have any type of trauma, lightheadedness with standing or other worrisome symptoms. Avoid NSAIDs (ibuprofen, naproxen, Aleve). Tylenol is safe to take. Follow-up with your primary doctor in 1-2 weeks. Please call for appointment. Follow-up with the GI doctor in 6-8 weeks to schedule a repeat endoscopy. Please call for appointment. Patient Instructions: Antibiotic Form Stand Alone Forms: General Discharge Information Follow-up/Referrals: Edmundo Hobson MD [Physician] - Call for Appointment Carter Castaneda DO [Primary Care Provider] - Call for Appointment Discharge Medications: New ferrous sulfate 325 mg (65 mg iron) tablet 325 mg PO BID Qty: 60 RF: 0 scott
--- NOTE | 2021-07-29 12:49 | PC.NURSE ---
GAstric bx- acute benign ulcer. Dr. Kirkpatrick aware. Faxed to Dr. Castaneda
== END 2021-07-28 14:00 | disposition home or self-care (01) ==
LOC: ANHED 07-27 01:21 → ANHIMU 07-27 08:25
PROVIDERS: Internal Medicine Gastroenterology; Admitting Provider Internal Medicine; Emergency Provider Emergency Medicine; PCP Internal Medicine; Visit Provider Internal Medicine
PROC: 0DJ08ZZ Inspection of Upper Intestinal Tract, Via Natural or Artificial Opening Endoscopic (ICD-10-PCS; CPT 43235; principal; 2021-07-27 13:15)
DX: K25.3 Acute gastric ulcer without hemorrhage or perforation (principal); K92.1 Melena; K74.60 Unspecified cirrhosis of liver; D64.9 Anemia, unspecified; F10.10 Alcohol abuse, uncomplicated; N40.0 Benign prostatic hyperplasia without lower urinary tract symptoms; M19.90 Unspecified osteoarthritis, unspecified site; I10 Essential (primary) hypertension; E66.01 Morbid (severe) obesity due to excess calories; Z68.41 Body mass index [BMI] 40.0-44.9, adult; F12.90 Cannabis use, unspecified, uncomplicated; Z79.51 Long term (current) use of inhaled steroids
CPT/HCPCS: 43239; 36415; 36430; 80053; 85014; 85018; 85025; 85027; 85055; 85610; 85730; 86850; 86900; 86901; 86920; 88305; 96361; 96374; 96375; 96376; 99285; A9270; C9113; G0378; J2060; J2550; J2704; J3411; J7030; J7050; J7060; J7120; P9016

== ENCOUNTER 2021-08-17 09:29 | Outpatient (CLI) | payer OTHER, SELFPAY ==
--- NOTE | 2021-08-17 09:50 | ECHO_ITS ---
Patient Info Name: Kate Klein Age: 60 years : 1960 Gender: Male Ht: 69 in Wt: 295 lbs BSA: 2.62 m2 HR: 61 bpm BP: 130 / 77 mmHg Heart Rhythm: Sinus Rhythm Exam Date: 08/17/2021 9:52 AM Exam Location: [facility] Pulmonary Patient Status: Outpatient Admit Date: 08/17/2021 Staff Ordering Physician: Carter Castaneda DO [employer] Operator: Judie Alas RDCS Attending Provider: Carter Castaneda DO Referring Physician: Tonya CHENG; Exam Type: CA echo doppler color flow Study Info Indications - SYSTOLIC EJECTION MURMUR Complete two-dimensional, color flow and Doppler transthoracic echocardiogram is performed. Summary 1. Complete two-dimensional, color flow and Doppler transthoracic echocardiogram is performed. 2. Left ventricular chamber dimension is normal. 3. Left ventricular systolic function is normal, estimated at 55-60%. 4. The left ventricular diastolic function is grade I diastolic dysfunction. 5. Left atrial chamber dimension is moderately enlarged. 6. There is mild mitral valve regurgitation. 7. No pulmonary hypertension, estimated pulmonary arterial systolic pressure is 19 mmHg. 8. There is trace pulmonic regurgitation. Left Ventricle Tissue doppler E/e' is not calculated. Left ventricular chamber dimension is normal. Left ventricular systolic function is normal, estimated at 55-60%. The left ventricular diastolic function is grade I diastolic dysfunction. Right Ventricle Right ventricular systolic function is normal and with normal TAPSE 3.3 cm.. Right ventricular chamber dimension is normal. Left Atria Left atrial chamber dimension is moderately enlarged. Right Atria Right atrial chamber dimension is normal. Aortic Valve The aortic valve is trileaflet. There is no aortic valve stenosis. There is no aortic valve regurgitation. Pulmonic Valve There is trace pulmonic regurgitation. Mitral Valve There is no mitral valve stenosis. There is mild mitral valve regurgitation. Tricuspid Valve There is no tricuspid valve regurgitation. No pulmonary hypertension, estimated pulmonary arterial systolic pressure is 19 mmHg. Pericardium/Pleural There is no pericardial effusion. Inferior Vena Cava Normal inferior vena cava with >50% collapse upon inspiration consistent with normal right atrial pressure, 5 mmHg. Aorta The aortic root size at the sinus of Valsalva is normal. Left Ventricular Outflow Tract Name Value Normal LVOT 2D LVOT Diameter 2.2 cm LVOT Doppler LVOT Peak Gradient 7 mmHg LVOT Mean Gradient 4 mmHg LVOT VTI 32 cm LVOT VTI/AV VTI Ratio 0.8 LVOT Stroke Volume 121 ml LVOT CO 6.6 l/min LVOT CI 2.5 l/min/m2 Pulmonic Valve Name Value Normal RVOT Doppler
== END 2021-08-17 09:30 | disposition home or self-care (01) ==
LOC: ANHCARD 09:34
PROVIDERS: PCP Internal Medicine; Visit Provider Internal Medicine
DX: R01.1 Cardiac murmur, unspecified (principal)
CPT/HCPCS: 93306

== ENCOUNTER 2021-09-15 10:09 | Outpatient (CLI) | payer OTHER, SELFPAY ==
[2021-09-15 10:53] LABS: Hematocrit 38.7 % (42.0-52.0); Hemoglobin 12.7 g/dL (14.0-18.0); Immature Platelet Fraction Pct 7.6 % (0.9-11.2); Mean Corpuscular HGB Conc 32.8 g/dl (32-36); Mean Corpuscular Hemoglobin 30.1 pg (26-34); Mean Corpuscular Volume 91.7 fl (80-100); Mean Platelet Volume 11.1 fl (7.4-10.4); Platelet Count Result 133 k/mm3 (150-375); Red Blood Count 4.22 M/mm3 (4.6-6.20); Red Cell Distribution Width 19.3 % (11.5-14.5); White Blood Count 4.2 K/mm3 (4.5-10.0)
== END 2021-09-15 10:10 | disposition home or self-care (01) ==
LOC: ANHLAB 10:11
PROVIDERS: PCP Internal Medicine; Visit Provider Internal Medicine
DX: D64.9 Anemia, unspecified (principal)
CPT/HCPCS: 36415; 85027; 85055

== ENCOUNTER 2021-09-26 01:31 | Day surgery (SDC) | payer OTHER, SELFPAY ==
[2021-09-08 10:38] VITALS: BMI 42.1
[2021-09-26 09:14] VITALS: BP 135/72; PULSE 59; RESP 20; TEMP 37.1; O2SAT 95; BMI 42.7
--- NOTE | 2021-09-26 09:21 | WPDGICN ---
Assessment and Plan Assessment and plan (1) Gastric ulcer: Code(s): K25.9 - Gastric ulcer, unspecified as acute or chronic, without hemorrhage or perforation Status: Acute Assessment and Plan: Patient recently identified as having a gastric ulcer. Plan is for EGD to document healing. Suggest avoiding alcohol. Continue to avoid nonsteroidal anti-inflammatory agents. Dose of pantoprazole will be reconsidered after endoscopy. (2) Obesity: Code(s): E66.9 - Obesity, unspecified Status: Acute GI Consult Note Consult date/time: 09/26/21 09:21 HPI: Kate Klein is a 61 year old male presents for follow-up EGD. Patient was found to have a gastric ulcer 2 months ago. He denies ongoing abdominal pain. He has had no obvious bleeding. He states his stools are black while taking iron replacement. He does have significant ongoing alcohol use. Presents today for follow-up EGD to document healing of ulcer. He has been maintained on pantoprazole 40mg p.o. b.i.d.. Family history is noncontributory. Review of Systems Review of Systems: All systems reviewed & are unremarkable except as noted in HPI and below PMFSH Past Medical History Medical History Arthritis Hypertension Prostate disease Surgical History Surgical History H/O hernia repair Family History Family History Mother Family history of Alzheimer's disease, Onset Age: 77 Sibling Patient's sister is in good health Family history of malignant neoplasm of breast in first degree relative Father Family history of thoracic aortic aneurysm Cerebrovascular accident, Onset Age: 62 Social History Social History Smoking status: Never smoker Second hand tobacco smoke exposure: No Alcohol intake: former Drinks per week: 119 Substance use: current Substance use type: does not use Living arrangements: with family Gender identity (if verbalized by the patient): Male Spiritual care concerns: No Meds Home Medications and Allergies Home Medications Medication Instructions Recorded Confirmed Type albuterol sulfate 90 mcg/actuation 1 puff INHALATION Q4H PRN #8.5 g 03/15/21 09/26/21 Rx aerosol inhaler ferrous sulfate 325 mg PO BID #60 tablet 07/28/21 09/26/21 Rx pantoprazole 40 mg PO BID #60 tablet 07/28/21 09/26/21 Rx thiamine HCl (vitamin B1) 100 mg PO DAILY #30 tablet 07/28/21 09/26/21 Rx metoprolol succinate 50 mg 50 mg PO DAILY 08/03/21 09/26/21 History tablet,extended release 24 hr alprazolam [Xanax] 0.5 mg PO QHS PRN 09/08/21 09/26/21 History Allergies Allergy/AdvReac Type Severity Reaction Status Date / Time No Known Allergies Allergy Verified 09/26/21 09:12 Vital Signs Vital Signs - 24 hr 09/26/21 09:14 Temperature 98.7 F Pulse Rate 59 L Respiratory Rate 20 Blood Pressure 135/72 Pulse Oximetry 95 Exam Narrative: Physical exam reveals patient be alert. Vital signs are stable. HEENT exam is unremarkable. Patient is anicteric. Lungs are clear to auscultation and percussion. Heart is without murmur or extra sounds. Abdominal exam bowel sounds are present soft nontender with no organomegaly. Digital external rectal exam Is deferred today.
[2021-09-26] MEDS: LACTATED RINGERS 1,000 ML 150 ML IV CONT (09:28)
--- NOTE | 2021-09-26 09:43 | WPDANESEPPF ---
Anes - Initial Pre Proc Eval Procedure: Operation Date: 09/26/21 10:00 Proposed Procedures p Esophagogastroduodenoscopy - Edmundo Hobson MD Date/Time: 09/26/21 09:43 Surgeon: Edmundo Hobson MD Pre Op Diagnosis: gastric ulcer Patient Data Age: 61 Gender: M Height: 1.75 m Weight: 131.2 kg Last Vital Signs Temp 37.1 C 09/26/21 09:14 Pulse 59 L 09/26/21 09:14 Resp 20 09/26/21 09:14 BP 135/72 09/26/21 09:14 Pulse Ox 95 09/26/21 09:14 Allergies Allergy/AdvReac Type Severity Reaction Status Date / Time No Known Allergies Allergy Verified 09/26/21 09:12 Home Medications Medication Instructions Recorded Confirmed Type albuterol sulfate 90 mcg/actuation 1 puff INHALATION Q4H PRN #8.5 g 03/15/21 09/26/21 Rx aerosol inhaler ferrous sulfate 325 mg PO BID #60 tablet 07/28/21 09/26/21 Rx pantoprazole 40 mg PO BID #60 tablet 07/28/21 09/26/21 Rx thiamine HCl (vitamin B1) 100 mg PO DAILY #30 tablet 07/28/21 09/26/21 Rx metoprolol succinate 50 mg 50 mg PO DAILY 08/03/21 09/26/21 History tablet,extended release 24 hr alprazolam [Xanax] 0.5 mg PO QHS PRN 09/08/21 09/26/21 History Patient hx anesthesia problems: none Family hx anesthesia problems: none Results Review: All pre-operative results and documents have been reviewed as part of the pre-operative evaluation. [facility] Past Medical History Medical History Arthritis Asthma Hyperlipidemia Hypertension Prostate disease Surgical History Surgical History H/O hernia repair Family History Family History Mother Family history of Alzheimer's disease, Onset Age: 77 Sibling Patient's sister is in good health Family history of malignant neoplasm of breast in first degree relative Father Family history of thoracic aortic aneurysm Cerebrovascular accident, Onset Age: 62 Social History Social History Smoking status: Never smoker Second hand tobacco smoke exposure: No Alcohol intake: former Drinks per week: 119 Substance use: current Substance use type: does not use Living arrangements: with family Gender identity (if verbalized by the patient): Male Spiritual care concerns: No Anes - Eval Final PreProcedure Day of Procedure 09/26/21 09:43 Patient weight: morbidly obese Heart: regular rate and rhythm Lungs: decreased breath sounds Airway: Mallampati scale class II Neurological: alert and oriented Last oral intake: >/= 8 hours ASA classification: III Emergent: no Anesthetic plan: proceed Anesthesia type and monitoring: general GIVS and standard monitoring Results Review: All pre-operative results and documents have been reviewed as part of the pre-operative evaluation. Informed Consent: The patient's anesthetic plan and its attendant risks and benefits were discussed with the patient/family/POA. Questions were solicited and answers provided to the satisfaction of the patient/family/POA.
[2021-09-26 09:59] VITALS: BP 102/81; PULSE 62; RESP 20; O2SAT 94
[2021-09-26 10:10] VITALS: BP 85/45; PULSE 55; RESP 20; O2SAT 99
[2021-09-26 10:16] VITALS: BP 105/58; PULSE 59; RESP 20; O2SAT 100
== END 2021-09-26 10:25 | disposition home or self-care (01) ==
PROVIDERS: PCP Internal Medicine; Visit Provider Internal Medicine Gastroenterology
PROC: 0DJ08ZZ Inspection of Upper Intestinal Tract, Via Natural or Artificial Opening Endoscopic (ICD-10-PCS; CPT 43235; principal; 2021-09-26 10:00)
DX: K25.9 Gastric ulcer, unspecified as acute or chronic, without hemorrhage or perforation (principal); K29.60 Other gastritis without bleeding; Z79.51 Long term (current) use of inhaled steroids; M19.90 Unspecified osteoarthritis, unspecified site; J45.909 Unspecified asthma, uncomplicated; I10 Essential (primary) hypertension; E78.5 Hyperlipidemia, unspecified; N42.9 Disorder of prostate, unspecified; Z87.891 Personal history of nicotine dependence; E66.01 Morbid (severe) obesity due to excess calories; Z68.41 Body mass index [BMI] 40.0-44.9, adult
CPT/HCPCS: 43239; 87081; J2704; J7120

== ENCOUNTER 2021-12-27 10:48 | Outpatient (CLI) | payer OTHER, SELFPAY ==
[2021-12-27 11:11] LABS: Basophils Absolute Auto 0.1 K/mm3 (0.0-0.1); Basophils Percent Auto 2.8 % (0.2-1.2); Eosinophils Absolute Auto 0.1 K/mm3 (0-0.3); Hematocrit 42.4 % (42.0-52.0); Immature Granulocyte Absolute 0.02 K/mm3 (0.00-0.031); Immature Granulocyte Percent A 0.5 % (0-0.5); Immature Platelet Fraction Pct 4.7 % (0.9-11.2); Lymphocytes Absolute Auto 1.38 K/mm3 (0.9-3.2); Lymphocytes Percent Auto 34.7 % (18.3-44.2); Mean Corpuscular Hemoglobin 32.9 pg (26-34); Mean Corpuscular Volume 99.5 fl (80-100); Mean Platelet Volume 10.2 fl (7.4-10.4); Monocytes Absolute Auto 0.8 K/mm3 (0.1-0.6); Monocytes Percent Auto 20.1 % (2.6-8.5); Neutrophils Absolute Auto 1.6 K/mm3 (1.3-6.7); Neutrophils Percent Auto 38.9 % (45.5-73.1); Platelet Count Result 149 k/mm3 (150-375); Red Blood Count 4.26 M/mm3 (4.6-6.20); Red Cell Distribution Width 18.2 % (11.5-14.5)
[2021-12-27 11:50] LABS: Alanine Aminotransferase 46 U/L (4-50); Albumin Level 3.9 g/dL (3.5-5.1); Alkaline Phosphatase 105 U/L (38-126); Anion Gap 3 mmol/L (8-16); Aspartate Amino Transferase 88 U/L (17-59); Bilirubin,Total 2.1 mg/dL (0.2-1.3); Blood Urea Nitrogen 8 mg/dL (9-20); Calcium 9.2 mg/dL (8.4-10.2); Carbon Dioxide 29 mmol/L (22-30); Chloride 105 mmol/L (98-107); Cholesterol 211 mg/dL (0-200); Estimated Glomerular Filt Rate > 60; Glucose 100 mg/dL (65-110); HDL Direct 56 mg/dL; Potassium 4.1 mmol/L (3.4-5.0); Sodium 137 mmol/L (137-145); Triglycerides 64 mg/dL (<150)
[2021-12-27 11:59] LABS: Iron 80 ug/dL (49-181)
[2021-12-27 12:01] LABS: LDL Cholesterol Direct 122 mg/dL
[2021-12-27 12:06] LABS: Percent Iron Saturation 24 % (20-50)
[2021-12-27 13:00] LABS: Folic Acid 2.8 ng/mL (2.76->20)
== END 2021-12-27 10:49 | disposition home or self-care (01) ==
PROVIDERS: PCP Internal Medicine; Visit Provider Internal Medicine
DX: D64.9 Anemia, unspecified (principal); E61.1 Iron deficiency; R53.83 Other fatigue
CPT/HCPCS: 36415; 80053; 80061; 82607; 82746; 83540; 83550; 84443; 85025; 85055

== ENCOUNTER 2022-06-23 10:05 | Emergency (ER) | payer OTHER, SELFPAY ==
[2022-06-23 10:16] VITALS: BP 139/71; PULSE 71; RESP 18; TEMP 36.9; O2SAT 98
--- NOTE | 2022-06-23 10:34 | ED.SKABFB ---
HPI - Skin/Abscess/Foreign Bdy General Chief complaint: Skin/Abscess/Foreign Body Stated complaint: Spot on Nose Bleeding Time Seen by Provider: 06/23/22 10:30 Source: patient and RN notes reviewed Mode of arrival: ambulatory Limitations: no limitations History of Present Illness HPI narrative: 61-year-old male presents with concern for an area on his right nostril has been there for more than 1 month and bleeds intermittently. He reports its been bleeding on and off this past week, reports every time he blows his nose it bleeds. He is not sure what happened in the first place to cause this wound. MD complaint: other (Lesion on the nose) Related Data Home Medications Medication Instructions Recorded Confirmed metoprolol succinate 50 mg 50 mg PO DAILY 08/03/21 06/23/22 tablet,extended release 24 hr (Toprol XL) Allergies Allergy/AdvReac Type Severity Reaction Status Date / Time No Known Allergies Allergy Verified 06/23/22 10:12 Review of Systems Review of Systems: CONSTITUTIONAL: Denies malaise, chills, sweats, or fever. EYES: Denies redness, or discharge. ENT: Denies rhinorrhea, congestion, swollen lips, swollen tongue CARDIOVASCULAR: Denies chest pain, palpitations, or edema. RESPIRATORY: Denies cough or dyspnea. GASTROINTESTINAL: Denies abdominal pain, nausea, vomiting SKIN: Reports an area on his right nostril that continues to bleed on and off MUSCULOSKELETAL: Denies joint pain or myalgia. NEUROLOGIC: Denies headache. All systems reviewed & are unremarkable except as noted in HPI and below PMFSH Past Medical History Medical History (Updated 06/23/22 @ 10:48 by Bina Henderson NP) Arthritis Asthma Hyperlipidemia Hypertension Prostate disease Surgical History Surgical History H/O hernia repair Family History Family History Mother Family history of Alzheimer's disease, Onset Age: 77 Sibling Patient's sister is in good health Family history of malignant neoplasm of breast in first degree relative Father Family history of thoracic aortic aneurysm Cerebrovascular accident, Onset Age: 62 Social History Social History Smoking status: Never smoker Second hand tobacco smoke exposure: No Alcohol intake: former Drinks per week: 119 Substance use: current Substance use type: does not use Gender identity (if verbalized by the patient): Male Spiritual care concerns: No Comments At time of signature, agree with nursing past medical, surgical, social and family history. There is no relevant family history pertinent to the presenting complaint Exam Narrative: GENERAL: Well-appearing, well-nourished, and in no acute distress. HEAD: Normocephalic, atraumatic. EYES: PERRLA, conjunctivae clear ENT: Mucous membranes moist. NECK: Supple. No lymphadenopathy CHEST: Clear to auscultation. No respiratory distress. HEART: Regular rate and rhythm. SKIN: Warm, dry. Approximately 0.25 cm slightly raised excoriated area on the outer right nare with no active bleeding NEURO: Alert and oriented x3. PSYCH: Normal mood and affect Course Course Emergency Course: Over nitrate applied to the small area of open skin, no bleeding is currently noted. Patient was advised on following up with primary care or dermatology for further evaluation, patient was advised that this area may likely start to bleed again. The patient that this lesion needs further evaluation with dermatology. Patient continues to ask for it to be cauterized advised patient that I could use silver nitrate to try to control bleeding but that likely will not resolve the issue. Patient is aware of diagnosis, understands and agrees to treatment plan. Anticipatory guidance given. Patient agrees to follow-up as directed and is aware of reasons to seek care at
[2022-06-23] MEDS: SILVER NITRATE (*SP) STICK 1 EACH TOPICAL ×2 (11:09→11:12)
== END 2022-06-23 10:58 | disposition home or self-care (01) ==
PROVIDERS: Emergency Provider Nurse Practitioner; PCP Internal Medicine
DX: L98.9 Disorder of the skin and subcutaneous tissue, unspecified (principal); M19.90 Unspecified osteoarthritis, unspecified site; J45.909 Unspecified asthma, uncomplicated; E78.5 Hyperlipidemia, unspecified; I10 Essential (primary) hypertension
CPT/HCPCS: 99213; G0463

== ENCOUNTER 2022-07-13 12:55 | Observation (INO) | payer OTHER, SELFPAY ==
[2022-07-13] VITALS (10 sets, daily range): BP systolic 150–178; BP diastolic 70–99; PULSE 79–96; RESP 16–20; TEMP 36.8–37.4; O2SAT 94–99
--- NOTE | ~2022-07-13 | US_ITS ---
EXAMINATION: US abdomen limited DATE: 07/15/2022 09:41 INDICATION: Abnormal liver function tests. TECHNIQUE: Multiple grayscale and Doppler ultrasound images of the abdomen were obtained. COMPARISON: CT abdomen and pelvis 08/29/2016 FINDINGS: The visualized portion of the body of the pancreas is normal. There is a 1.8 cm cyst in the liver. There is diffuse hepatic steatosis. There is liver surface nodularity, consistent with cirrho sis. There is flow in main portal vein. The gallbladder is normal in size and contains a gallstone. N o gallbladder wall thickening or sonographic [place] sign. The common duct is normal and measures 6 mm . IMPRESSION: 1. Cirrhosis of the liver. 2. Cholelithiasis. No evidence of acute cholecystitis. Reviewed, dictated and finalized at location A.
[2022-07-13 13:36] LABS: Basophils Absolute Auto 0.1 K/mm3 (0.0-0.1); Basophils Percent Auto 1.2 % (0.2-1.2); Eosinophils Absolute Auto 0.1 K/mm3 (0-0.3); Eosinophils Percent Auto 2.1 % (0-4.4); Hematocrit 39.7 % (42.0-52.0); Hemoglobin 12.9 g/dL (14.0-18.0); Immature Granulocyte Absolute 0.04 K/mm3 (0.00-0.031); Immature Granulocyte Percent A 0.8 % (0-0.5); Immature Platelet Fraction Pct 6.3 % (0.9-11.2); Lymphocytes Absolute Auto 0.38 K/mm3 (0.9-3.2); Lymphocytes Percent Auto 7.9 % (18.3-44.2); Mean Corpuscular HGB Conc 32.5 g/dl (32-36); Mean Corpuscular Hemoglobin 29.8 pg (26-34); Mean Corpuscular Volume 91.7 fl (80-100); Mean Platelet Volume 11.2 fl (7.4-10.4); Monocytes Absolute Auto 0.4 K/mm3 (0.1-0.6); Monocytes Percent Auto 9.1 % (2.6-8.5); Neutrophils Absolute Auto 3.8 K/mm3 (1.3-6.7); Neutrophils Percent Auto 78.9 % (45.5-73.1); Platelet Count Result 67 k/mm3 (150-375); Red Blood Count 4.33 M/mm3 (4.6-6.20); Red Cell Distribution Width 18.7 % (11.5-14.5); White Blood Count 4.8 K/mm3 (4.5-10.0)
[2022-07-13 13:45] LABS: Alanine Aminotransferase 58 U/L (6-50); Albumin Level 3.7 g/dL (3.5-5.1); Alkaline Phosphatase 135 U/L (38-126); Anion Gap 14 mmol/L (8-16); Aspartate Amino Transferase 141 U/L (17-59); Bilirubin,Total 2.9 mg/dL (0.2-1.3); Blood Urea Nitrogen 15 mg/dL (9-20); Calcium 8.6 mg/dL (8.4-10.2); Carbon Dioxide 24 mmol/L (22-30); Chloride 102 mmol/L (98-107); Estimated CRCL calculation 149 ml/min; Estimated Glomerular Filt Rate > 60; Glucose 119 mg/dL (65-110); Potassium 3.7 mmol/L (3.4-5.0); Sodium 140 mmol/L (137-145)
[2022-07-13 13:58] LABS: INR 2.3; Prothrombin Time 24.5 Seconds (11.1-14.7)
[2022-07-13 13:59] LABS: Partial Thromboplastin Time 41.5 SECONDS (22.3-36.8)
--- NOTE | 2022-07-13 15:33 | ED.GIBLEED ---
HPI - GI Bleed General Chief complaint: GI Bleed Stated complaint: rectal bleeding Time Seen by Provider: 07/13/22 15:14 History of Present Illness HPI Narrative: 61-year-old male presented to the emergency department for evaluation of GI bleeding. Patient does have a history of GI bleed (08/16) and has a previous follow-up with Dr. Hobson. Patient states yesterday afternoon into the evening he was having multiple dark tarry stools. Patient states this morning for approximately 8-11 he had multiple episodes of bloody emesis. Patient has had gastric ulcers before, patient does admit to drinking alcohol almost daily but denies any prior history of esophageal varices. Patient does take aspirin. Related Data Home Medications Medication Instructions Recorded Confirmed metoprolol succinate 50 mg 50 mg PO DAILY 08/03/21 07/13/22 tablet,extended release 24 hr (Toprol XL) Allergies Allergy/AdvReac Type Severity Reaction Status Date / Time No Known Allergies Allergy Verified 07/13/22 15:26 Review of Systems Review of Systems: CONSTITUTIONAL: Denies fever, chills, or sweats. EYES: Denies visual changes, redness, or discharge. ENT: Denies rhinorrhea, congestion, sore throat, or otalgia. CARDIOVASCULAR: Denies chest pain, palpitations, or edema. RESPIRATORY: Denies cough or dyspnea. GASTROINTESTINAL: See HPI GENITOURINARY: Denies dysuria or hematuria. SKIN: Denies rash or itching. MUSCULOSKELETAL: Denies back pain, joint pain, or myalgia. NEUROLOGIC: Denies headache, numbness, or weakness. [facility] Past Medical History Medical History (Updated 07/13/22 @ 19:12 by Francisco Bailon MD) Arthritis Asthma Hyperlipidemia Hypertension Prostate disease Surgical History Surgical History H/O hernia repair Family History Family History Mother Family history of Alzheimer's disease, Onset Age: 77 Sibling Patient's sister is in good health Family history of malignant neoplasm of breast in first degree relative Father Family history of thoracic aortic aneurysm Cerebrovascular accident, Onset Age: 62 Social History Social History Smoking status: Never smoker Second hand tobacco smoke exposure: No Alcohol intake: current Drinks per week: 119 Substance use: never Substance use type: does not use Gender identity (if verbalized by the patient): Male Spiritual care concerns: No Exam Narrative: APPEARANCE: Well appearing, no pain, no distress, well-nourished. HEAD: normocephalic, atraumatic. EYES: PERRLA/EOMI, conjunctivae clear. NOSE: Normal no drainage EARS:TMS clear with good light reflex. THROAT: Pharynx clear, no exudate. NECK: Supple. No adenopathy, no masses. RESPIRATORY: Airway patent, respirations nonlabored. Clear to auscultation bilaterally, no rales, rhonchi, wheezing. CARDIOVASCULAR: Regular rate and rhythm without murmurs rubs or gallops. ABDOMINAL: Soft, mild nonspecific abdominal tenderness. Hemoccult positive on MINOO MUSCULOSKELETAL: Moves all extremities. Strength/ROM intact, No edema, No calf tenderness. NEURO: Alert. Cranial nerves II through XII intact. Grossly intact SKIN: Warm, dry. Normal Color Course Course Emergency Course: Hemoccult positive. DR Hobson is on vacation and accepting patients today. Case was discussed with GI on-call. Patient's previous scope showed no evidence of esophageal varices. Patient was started on Protonix. Patient was stable at time of admission. Patient denies any previous alcohol withdrawal seizures or complications. Vital Signs Vital signs: Vital Signs Temperature 99.1 F 07/13/22 13:08 Pulse Rate 96 07/13/22 13:08 Respiratory Rate 18 07/13/22 13:08 Blood Pressure 160/70 H 07/13/22 13:08 Pulse Oximetry 98 07/13/22 13:08 Oxygen Delivery Room Air
[2022-07-13] MEDS: PANTOPRAZOLE SODIUM IV 40 MG VIAL 80 MG IV PUSH (15:58)
[2022-07-13] MEDS: ONDANSETRON INJ 4 MG/2 ML VIAL IV PUSH ×2 (15:58→18:53)
--- NOTE | 2022-07-13 18:00 | PM.IMHP ---
H&P: HPI History of Present Illness Date/Time: 07/13/22 18:00 Chief Complaint: Dark stools and coffee-ground emesis. Narrative: This is a 61-year-old male with chronic alcohol abuse, gastroesophageal reflux disease, gastric ulcers, and hypertension presented to the emergency department from home for evaluation of dark stools and coffee-ground emesis. He has been taking pantoprazole since he was diagnosed with gastric ulcers last fall and he has reportedly been doing well with minimal to no GERD symptoms. Yesterday afternoon he developed diffuse periumbilical cramping and shortly thereafter he began passing upwards of 30 loose stools which were initially dark though they became more watery as the night progressed. This morning he was nauseated upon wakening he reports having several episodes of coffee-ground emesis. In the emergency department he was indeed found to have guaiac-positive stool and he is being admitted in this setting for further workup. Labs today show stable hemoglobin hematocrit thus far, [place] [address], transaminitis, and prolonged coags studies. At the time my evaluation he has some tremors of his arms but he and his state that is not necessarily unusual for him. He has not had a drink since last afternoon and he does feel a bit anxious and in fact he thinks his tremors are a bit worse than normal. He has no history of alcohol withdrawal seizures or significant withdrawal symptoms aside from the tremors. Denies NSAID use. Review of Systems Review of Systems: Twelve systems were reviewed. No fever, chills, or sweats. No cold or flu symptoms. No sick contacts. No chest pain, pleuritic pain, palpitations, or shortness of breath. Except as documented, all other systems were reviewed and are negative. [facility] Past Medical History Medical History (Updated 07/13/22 @ 22:43 by Laura Knowles PA-C) Alcoholic liver disease Arthritis Asthma Chronic alcohol abuse Gastric ulcer Gastroesophageal reflux disease Hyperlipidemia Hypertension Prostate cancer Surgical History Surgical History (Updated 07/13/22 @ 22:39 by Laura Knowles PA-C) History of esophagogastroduodenoscopy History of hernia repair History of prostatectomy Family History Family History Mother Family history of Alzheimer's disease, Onset Age: 77 Sibling Patient's sister is in good health Family history of malignant neoplasm of breast in first degree relative Father Family history of thoracic aortic aneurysm Cerebrovascular accident, Onset Age: 61 Social History Social History (Updated 07/13/22 @ 22:40 by Laura Knowles PA-C) Social History: Surrogate medical decision maker: Marla Klein, spouse. Code status: Full code. Smoking status: Never smoker Second hand tobacco smoke exposure: No Alcohol intake: current Drinks per week: 119 Alcohol use details: He patient drinks at least a 5th of hard liquor a day. Substance use: never Substance use type: does not use Living arrangements: with family Occupation/Education: retired Spiritual care concerns: No Meds Home Medications and Allergies Home Medications Medication Instructions Recorded Confirmed Type albuterol sulfate 90 mcg/actuation 1 puff inhalation Q4H PRN 03/15/21 07/13/22 Rx aerosol inhaler shortness of breath or wheezing #8.5 grams pantoprazole 40 mg tablet,delayed 40 mg PO BID #60 tabs 07/28/21 07/13/22 Rx release metoprolol succinate 50 mg 50 mg PO DAILY 08/03/21 07/13/22 History tablet,extended release 24 hr (Toprol XL) alprazolam 0.5 mg tablet (Xanax) 0.5 mg PO QHS PRN anxiety #30 tabs 05/03/22 07/13/22 Rx Allergies Allergy/AdvReac Type Severity Reaction Status Date / Time No Known Allergies Allergy Verified 07/13/22 15:26 Vital Signs Vital Signs - 24 hr 07/13/22 13:08 07/13/22 16:33 07/13/22 1
--- NOTE | 2022-07-13 18:24 | PC.NURSE ---
Report received from [facility]
--- NOTE | 2022-07-13 18:38 | PC.NURSE ---
This patient, Kate Klein, was admitted to [facility] Surg Room 302-01. Patient/family oriented to hospital policies and general routines including ID bracelet, bed and alarms, visiting hours, pain management, procedures, bathroom and other care routines, personal items, smoking policy, room service/diet, and visiting hours. Information on how to activate the Rapid Response Team has been discussed. Patient/Family are encouraged to report perceived risks to care and to ask questions if they do not understand what they are told or what they should do. Pt arrived at 1830, report received from [facility]
[2022-07-13] MEDS: SODIUM CHLORIDE 0.9% IV 1,000 ML 125 ML IV CONT (18:56)
[2022-07-13 20:36] LABS: Hematocrit 38.6 % (42.0-52.0); Hemoglobin 12.4 g/dL (14.0-18.0)
[2022-07-13 20:45] LABS: Magnesium 1.1 mg/dL (1.6-2.3)
[2022-07-13] MEDS: chlordiazePOXIDE (*CRX) 25 MG CAPSULE 50 MG PO (21:08)
[2022-07-13] MEDS: THIAMINE HCL 200 MG/2 ML VIAL 100 MG IV PUSH (21:08)
[2022-07-13] MEDS: FOLIC ACID 1 MG/0.2 ML INJ IV PUSH (22:09)
[2022-07-13] MEDS: MAGNESIUM SULF 4 GM/WATER100ML 4 GM/100 ML BAG IVPB (22:52)
[2022-07-14] VITALS (9 sets, daily range): BP systolic 108–166; BP diastolic 55–83; PULSE 66–77; RESP 15–24; TEMP 36.8–37.2; O2SAT 93–96
[2022-07-14 00:51] LABS: Hematocrit 37.3 % (42.0-52.0); Hemoglobin 11.9 g/dL (14.0-18.0)
[2022-07-14 06:31] LABS: Hemoglobin 11.7 g/dL (14.0-18.0); Mean Corpuscular HGB Conc 31.6 g/dl (32-36); Mean Corpuscular Volume 94.9 fl (80-100); Platelet Count Result 54 k/mm3 (150-375); Red Cell Distribution Width 18.8 % (11.5-14.5); White Blood Count 4.4 K/mm3 (4.5-10.0)
[2022-07-14] MEDS: SODIUM CHLORIDE 0.9% IV 1,000 ML 75 ML IV CONT ×2 (06:31→23:18)
[2022-07-14] MEDS: chlordiazePOXIDE (*CRX) 25 MG CAPSULE 50 MG PO ×2 (06:31→17:34)
[2022-07-14 06:50] LABS: Alanine Aminotransferase 48 U/L (6-50); Albumin Level 2.9 g/dL (3.5-5.1); Alkaline Phosphatase 109 U/L (38-126); Anion Gap 6 mmol/L (8-16); Aspartate Amino Transferase 107 U/L (17-59); Bilirubin,Total 3.7 mg/dL (0.2-1.3); Blood Urea Nitrogen 15 mg/dL (9-20); Carbon Dioxide 28 mmol/L (22-30); Chloride 102 mmol/L (98-107); Creatine Kinase 217 U/L (55-170); Estimated CRCL calculation 129 ml/min; Estimated Glomerular Filt Rate > 60; Glucose 89 mg/dL (65-110); Magnesium 1.8 mg/dL (1.6-2.3); Potassium 3.5 mmol/L (3.4-5.0); Sodium 136 mmol/L (137-145)
[2022-07-14] MEDS: THIAMINE HCL 100 MG TABLET PO (08:51)
[2022-07-14] MEDS: METOPROLOL SUCCINATE EXT REL 50 MG TABCR PO (08:51)
[2022-07-14] MEDS: FOLIC ACID 1 MG TABLET PO (08:51)
[2022-07-14] MEDS: PANTOPRAZOLE SODIUM IV 40 MG VIAL IV PUSH (10:31)
--- NOTE | 2022-07-14 11:58 | PM.IMPN ---
Progress Note: A&P Assessment and Plan (1) GI bleed: Code(s): K92.2 - Gastrointestinal hemorrhage, unspecified Status: Acute Assessment and Plan: Patient has a history of gastric ulcers. He presented for evaluation of dark tarry stools and coffee- ground emesis. He reports he has been not been taking his Protonix as prescribed and has been drinking more alcohol recently. Hemoglobin 12 on admission and trending down slightly to 11.7 this morning. No stools since admission. GI was consulted and appreciate recommendations. EGD today. Trend H& H. transfuse for hemoglobin less than 7 Continue Protonix 40 mg IV b.i.d. (2) Alcoholic liver disease: Code(s): K70.9 - Alcoholic liver disease, unspecified Status: Acute Assessment and Plan: patient has significant history of alcohol intake that is current. ultrasound in 2020 showed diffuse hepatic steatosis and portal venous hypertension. LFTs are elevated and T bili 3.7 ( this may be slightly increased due to GI bleed), he has thrombocytopenia platelets 54. Patient was counseled to quit drinking. Liver ultrasound pending Avoid hepatotoxic agents. The repeat LFTs tomorrow (3) Chronic alcohol abuse: Code(s): F10.10 - Alcohol abuse, uncomplicated Status: Acute Assessment and Plan: Patient drinks approximately a 5th of hard liquor daily with last drink on Sunday evening. Alcohol level was not drawn on admission. CIWA protocol initiated Patient is on Librium 50 mg p.o. q.6 hours. Initiate Valium IV q.4 hours p.r.n. for elevated CIWA level greater than 8 PO Thiamine and folic acid ordered Seizure precautions Patient counseled to quit drinking. Care coordination consult placed (4) Thrombocytopenia: Code(s): D69.6 - Thrombocytopenia, unspecified Status: Acute Assessment and Plan: secondary to liver disease. Platelets 67 on admission and 54 today. Continue to monitor stools and H&H. (5) Coagulopathy: Code(s): D68.9 - Coagulation defect, unspecified Status: Acute Assessment and Plan: Secondary to liver cirrhosis. Continue to monitor (6) Hypomagnesemia: Code(s): E83.42 - Hypomagnesemia Status: Acute Assessment and Plan: magnesium level 1.1 on admission patient received 4 g Mag sulfate on admission. This is likely secondary to patient's alcohol ingestion. Repeat magnesium 1.8. Monitor magnesium daily and supplement as needed. (7) Hypertension: Code(s): I10 - Essential (primary) hypertension Status: Acute Assessment and Plan: Blood plus pressure fluctuant 108/55 to 166/82. Heart rate 66. Metoprolol XL 50 mg continued. Monitor blood pressure closely initiate hold parameters. (8) Anxiety: Code(s): F41.9 - Anxiety disorder, unspecified Status: Acute Assessment and Plan: P.r.n. Valium ordered. Plan Code status: Full code Disposition: Home Time Spent With Patient Time with patient: 15 - 25 minutes Subjective Date/time seen: 07/14/22 11:58 Interval history: Patient is a 61-year-old male with chronic alcohol abuse with liver disease, gastroesophageal reflux disease, gastric ulcers, and hypertension. He presented to the emergency department from home for evaluation of dark stools and coffee-ground emesis. Patient found sleeping. He reports he has the sensation of having to defecate, but has not had any stool since admission. He denies abdominal pain, nausea, emesis, shortness of breath, chest pain, palpitations or dizziness. His last drink was Sunday night. He drinks a 5th of hard alcohol daily. Review of Systems Review of Systems: All systems reviewed & are unremarkable except as noted in HPI and below Exam Narrative: General: Moderately ill-appearing male sitting up in bed. No acute distress. HEENT: Normocephalic. Atraumatic. PERRL, EOMI. Conjunc
[2022-07-14] MEDS: LACTATED RINGERS 1,000 ML 150 ML IV CONT (12:11)
--- NOTE | 2022-07-14 12:23 | WPDGICN ---
Assessment and Plan Assessment and plan (1) GI bleed: Code(s): K92.2 - Gastrointestinal hemorrhage, unspecified Status: Acute Assessment and Plan: Patient admitted the hospital with evidence for GI bleeding with melenic stools and coffee-ground hematemesis. Plan is for patient to continue PPI therapy. An EGD will be performed to evaluate for recurrent ulcer or other pathology causing bleeding. Further recommendations may be given after endoscopy. Patient should continue to avoid NSAIDs and abstain from alcohol. (2) Alcoholic liver disease: Code(s): K70.9 - Alcoholic liver disease, unspecified Status: Acute Assessment and Plan: Patient with evidence for alcoholic liver disease. Coagulopathy thrombocytopenia are all suspicious for early cirrhosis. Alcohol avoidance strongly encouraged. Monitor LFTs supportive care for now. (3) Thrombocytopenia: Code(s): D69.6 - Thrombocytopenia, unspecified Status: Acute Assessment and Plan: Low platelet count identified. This alone does not account for GI bleeding but patient will have significant tendency towards continued bleeding if this persists (4) Coagulopathy: Code(s): D68.9 - Coagulation defect, unspecified Status: Acute Assessment and Plan: elevated protime and INR consistent with alcoholic liver disease as stated previously alcoholic avoidance strongly encouraged. (5) Chronic alcohol abuse: Code(s): F10.10 - Alcohol abuse, uncomplicated Status: Acute (6) Obesity, Class III, BMI 40-49.9 (morbid obesity): Code(s): E66.01 - Morbid (severe) obesity due to excess calories Status: Acute GI Consult Note Consult date/time: 07/14/22 12:23 Reason for consult: Hematemesis and melena. HPI: Kate Klein is a 61 year old male I am asked to see because of upper GI bleeding. Patient has a history of alcohol abuse. As a distant history of gastric ulcer. In September EGD revealed gastric erosion with previous ulcer healing. Patient admits to routine ongoing alcohol use. Patient states over the last several days began to pass black melenic stools. Yesterday vomited dark coffee-ground material in presented to the emergency room. Patient was admitted to the hospital for further evaluation therapy. He has not required transfusion at this time. He has continued to drink alcohol up until the time of admission. Currently somewhat tremulous. Denies specific abdominal pain. Family history noncontributory. At home patient has been continuing PPI therapy. Review of Systems Review of Systems: Review of systems noncontributory. [facility] Past Medical History Medical History (Updated 07/13/22 @ 22:43 by Laura Knowles PA-C) Alcoholic liver disease Arthritis Asthma Chronic alcohol abuse Gastric ulcer Gastroesophageal reflux disease Hyperlipidemia Hypertension Prostate cancer Surgical History Surgical History (Updated 07/13/22 @ 22:39 by Laura Knowles PA-C) History of esophagogastroduodenoscopy History of hernia repair History of prostatectomy Family History Family History Mother Family history of Alzheimer's disease, Onset Age: 77 Sibling Patient's sister is in good health Family history of malignant neoplasm of breast in first degree relative Father Family history of thoracic aortic aneurysm Cerebrovascular accident, Onset Age: 62 Social History Social History (Updated 07/13/22 @ 22:40 by Laura Knowles PA-C) Social History: Surrogate medical decision maker: Marla Klein, spouse. Code status: Full code. Smoking status: Never smoker Second hand tobacco smoke exposure: No Alcohol intake: current Drinks per week: 119 Alcohol use details: He patient drinks at least a 5th of hard liquor a day. Substance use: never Substance use type: does not use Living arrange
--- NOTE | 2022-07-14 12:25 | WPDANESEPPF ---
Anes - Initial Pre Proc Eval Procedure: Operation Date: 07/14/22 14:00 Proposed Procedures p Esophagogastroduodenoscopy - Edmundo Hobson MD Date/Time: 07/14/22 12:25 Surgeon: Mirella Lock DO Pre Op Diagnosis: GI bleed Patient Data Age: 61 Gender: M Height: 1.75 m Weight: 135 kg Last Vital Signs Temp 98.9 F 07/14/22 12:09 Pulse 77 07/14/22 12:09 Resp 24 H 07/14/22 12:09 BP 166/82 H 07/14/22 12:09 Pulse Ox 96 07/14/22 12:09 O2 Del Method Room Air 07/14/22 12:09 Allergies Allergy/AdvReac Type Severity Reaction Status Date / Time No Known Allergies Allergy Verified 07/14/22 12:08 Home Medications Medication Instructions Recorded Confirmed Type albuterol sulfate 90 mcg/actuation 1 puff inhalation Q4H PRN 03/15/21 07/13/22 Rx aerosol inhaler shortness of breath or wheezing #8.5 grams pantoprazole 40 mg tablet,delayed 40 mg PO BID #60 tabs 07/28/21 07/13/22 Rx release metoprolol succinate 50 mg 50 mg PO DAILY 08/03/21 07/13/22 History tablet,extended release 24 hr (Toprol XL) alprazolam 0.5 mg tablet (Xanax) 0.5 mg PO QHS PRN anxiety #30 tabs 05/03/22 07/13/22 Rx Laboratory Tests 07/13/22 07/13/22 07/13/22 13:26 13:26 13:26 WBC 4.8 K/mm3 K/mm3 (4.5-10.0) RBC 4.33 M/mm3 L M/mm3 (4.6-6.20) Hgb 12.9 g/dL L g/dL (14.0-18.0) Hct 39.7 % L % (42.0-52.0) MCV 91.7 fl fl (80-100) MCH 29.8 pg pg (26-34) MCHC 32.5 g/dl g/dl (32-36) RDW 18.7 % H % (11.5-14.5) Plt Count 67 k/mm3 L D k/mm3 (150-375) MPV 11.2 fl H fl (7.4-10.4) Immature Gran % (Auto) 0.8 % H % (0-0.5) Neut % (Auto) 78.9 % H % (45.5-73.1) Lymph % (Auto) 7.9 % L % (18.3-44.2) [place] % (Auto) 9.1 % H % (2.6-8.5) Eos % (Auto) 2.1 % % (0-4.4) Baso % (Auto) 1.2 % % (0.2-1.2) Lymph # (Auto) 0.38 K/mm3 L K/mm3 (0.9-3.2) [place] # (Auto) 0.4 K/mm3 K/mm3 (0.1-0.6) Eos # (Auto) 0.1 K/mm3 K/mm3 (0-0.3) Baso # (Auto) 0.1 K/mm3 K/mm3 (0.0-0.1) Abs Immat Gran (auto) 0.04 K/mm3 H K/mm3 (0.00-0.031) Absolute Neuts (auto) 3.8 K/mm3 K/mm3 (1.3-6.7) Absolute Nucleated RBC 0.0 K/mm3 K/mm3 (0.0-0.012) Nucleated RBC % 0.0 % % (0.0-0.2) % Immature Plt Fraction 6.3 % % (0.9-11.2) PT 24.5 Seconds H Seconds (11.1-14.7) INR 2.3 APTT 41.5 SECONDS H SECONDS (22.3-36.8) Sodium 140 mmol/L mmol/L (137-145) Potassium 3.7 mmol/L mmol/L (3.4-5.0) Chloride 102 mmol/L mmol/L (98-107) Carbon Dioxide 24 mmol/L mmol/L (22-30) Anion Gap 14 mmol/L mmol/L (8-16) BUN 15 mg/dL D mg/dL (9-20) Creatinine 0.60 mg/dL L mg/dL (0.7-1.3) Estim Creat Clear Calc 149 ml/min ml/min Estimated GFR > 60 (59 - ) Glucose 119 mg/dL H mg/dL (65-110) Calcium 8.6 mg/dL mg/dL (8.4-10.2) Magnesium Total Bilirubin 2.9 mg/dL H mg/dL (0.2-1.3) AST 141 U/L H U/L (17-59) ALT 58 U/L H U/L (6-50) Alkaline Phosphatase 135 U/L H U/L (38-126) Total Creatine Kinase Total Protein 7.0 g/dL g/dL (6.3-8.2) Albumin 3.7 g/dL g/dL (3.5-5.1) Blood Type Antibody Screen 07/13/22 07/13/22 07/13/22 13:26 20:30 20:30 WBC RBC Hgb 12.4 g/dL L g/dL (14.0-18.0) Hct 38.6 % L % (42.0-52.0) MCV MCH MCHC RDW Plt Count MPV Immature Gran % (Auto) Neut % (Auto) Lymph % (Auto) [place] % (Auto) Eos % (Auto) Baso % (Auto) Lymph # (
[2022-07-14] MEDS: PANTOPRAZOLE 40 MG TABLET PO (20:37)
[2022-07-14] MEDS: diazePAM INJ (*CRX) 10 MG/2 ML SYRINGE IV PUSH (22:16)
[2022-07-15] MEDS: chlordiazePOXIDE (*CRX) 25 MG CAPSULE 50 MG PO ×3 (00:17→12:03)
[2022-07-15 05:31] VITALS: BP 129/80; PULSE 63; RESP 18; TEMP 36.9; O2SAT 92
[2022-07-15 06:18] LABS: Hematocrit 35.6 % (42.0-52.0); Hemoglobin 11.3 g/dL (14.0-18.0); Immature Platelet Fraction Pct 9.3 % (0.9-11.2); Mean Corpuscular HGB Conc 31.7 g/dl (32-36); Mean Corpuscular Hemoglobin 29.7 pg (26-34); Mean Corpuscular Volume 93.7 fl (80-100); Mean Platelet Volume 12.6 fl (7.4-10.4); Platelet Count Result 52 k/mm3 (150-375); Red Cell Distribution Width 18.6 % (11.5-14.5); White Blood Count 4.3 K/mm3 (4.5-10.0)
[2022-07-15 06:29] LABS: Alanine Aminotransferase 43 U/L (6-50); Albumin Level 2.9 g/dL (3.5-5.1); Alkaline Phosphatase 109 U/L (38-126); Anion Gap 8 mmol/L (8-16); Aspartate Amino Transferase 87 U/L (17-59); Blood Urea Nitrogen 15 mg/dL (9-20); Calcium 7.6 mg/dL (8.4-10.2); Carbon Dioxide 25 mmol/L (22-30); Chloride 105 mmol/L (98-107); Estimated CRCL calculation 148 ml/min; Estimated Glomerular Filt Rate > 60; Glucose 87 mg/dL (65-110); Magnesium 1.7 mg/dL (1.6-2.3); Potassium 3.6 mmol/L (3.4-5.0); Sodium 138 mmol/L (137-145)
[2022-07-15] MEDS: MAGNESIUM SULF 2 GM/WATER 50ML 2 GM/50 ML BAG IVPB (08:33)
[2022-07-15] MEDS: diazePAM INJ (*CRX) 10 MG/2 ML SYRINGE 5 MG IV PUSH (08:35)
[2022-07-15 08:37] VITALS: PULSE 84
[2022-07-15] MEDS: THIAMINE HCL 100 MG TABLET PO (08:37)
[2022-07-15] MEDS: FOLIC ACID 1 MG TABLET PO (08:37)
[2022-07-15] MEDS: PANTOPRAZOLE 40 MG TABLET PO (08:37)
[2022-07-15] MEDS: METOPROLOL SUCCINATE EXT REL 50 MG TABCR PO (08:37)
--- NOTE | 2022-07-15 11:36 | WPDANESPN ---
Anes - Prog Note Post-Op Date/Time: 07/15/22 11:36 Cardiovascular status: normal Respiratory status: normal Airway patency: baseline Mental status: baseline Post-Op hydration status: normal Vital Signs: Last Vital Signs Temp 36.9 C 07/15/22 05:31 Pulse 84 07/15/22 08:37 Resp 18 07/15/22 05:31 BP 129/80 07/15/22 05:31 Pulse Ox 92 07/15/22 05:31 O2 Del Method Room Air 07/14/22 20:00 Pain Score (VAS): 12/05 I/O: Intake & Output 07/14/22 07/15/22 07/15/22 23:59 07:59 15:59 Intake Total 1240 150 Balance 1240 150 Laboratory Tests 07/15/22 05:59 07/15/22 05:59 07/15/22 07/15/22 05:59 05:59 WBC 4.3 L RBC 3.80 L Hgb 11.3 L Hct 35.6 L MCV 93.7 MCH 29.7 MCHC 31.7 L RDW 18.6 H Plt Count 52 L MPV 12.6 H % Immature Plt Fraction 9.3 Sodium 138 Potassium 3.6 Chloride 105 Carbon Dioxide 25 Anion Gap 8 BUN 15 Creatinine 0.60 L Estim Creat Clear Calc 148 Estimated GFR > 60 Glucose 87 Calcium 7.6 L Magnesium 1.7 Total Bilirubin 4.0 H AST 87 H ALT 43 Alkaline Phosphatase 109 Total Protein 6.0 L Albumin 2.9 L Post-procedural complaints: none Patient Feedback: Patient satisfied with anesthetic care.
--- NOTE | 2022-07-15 11:53 | PM.IMPN ---
Progress Note: A&P Assessment and Plan (1) GI bleed: Code(s): K92.2 - Gastrointestinal hemorrhage, unspecified Status: Acute Assessment and Plan: Patient has a history of gastric ulcers. He presented for evaluation of dark tarry stools and coffee- ground emesis. He reports he has been not been taking his Protonix as prescribed and has been drinking more alcohol recently. Hemoglobin 12 on admission and trending down slightly to 11.7 this morning. No stools since admission. GI was consulted and appreciate recommendations. EGD today. Trend H& H. transfuse for hemoglobin less than 7 Continue Protonix 40 mg IV b.i.d. (2) Alcoholic liver disease: Code(s): K70.9 - Alcoholic liver disease, unspecified Status: Acute Assessment and Plan: patient has significant history of alcohol intake that is current. ultrasound in 2020 showed diffuse hepatic steatosis and portal venous hypertension. LFTs are elevated and T bili 3.7 ( this may be slightly increased due to GI bleed), he has thrombocytopenia platelets 54. Patient was counseled to quit drinking. Liver ultrasound pending Avoid hepatotoxic agents. The repeat LFTs tomorrow (3) Chronic alcohol abuse: Code(s): F10.10 - Alcohol abuse, uncomplicated Status: Acute Assessment and Plan: Patient drinks approximately a 5th of hard liquor daily with last drink on Sunday evening. Alcohol level was not drawn on admission. CIWA protocol initiated Patient is on Librium 50 mg p.o. q.6 hours. Initiate Valium IV q.4 hours p.r.n. for elevated CIWA level greater than 8 PO Thiamine and folic acid ordered Seizure precautions Patient counseled to quit drinking. Care coordination consult placed (4) Thrombocytopenia: Code(s): D69.6 - Thrombocytopenia, unspecified Status: Acute Assessment and Plan: secondary to liver disease. Platelets 67 on admission and 54 today. Continue to monitor stools and H&H. (5) Coagulopathy: Code(s): D68.9 - Coagulation defect, unspecified Status: Acute Assessment and Plan: Secondary to liver cirrhosis. Continue to monitor (6) Hypomagnesemia: Code(s): E83.42 - Hypomagnesemia Status: Acute Assessment and Plan: magnesium level 1.1 on admission patient received 4 g Mag sulfate on admission. This is likely secondary to patient's alcohol ingestion. Repeat magnesium 1.8. Monitor magnesium daily and supplement as needed. (7) Hypertension: Code(s): I10 - Essential (primary) hypertension Status: Acute Assessment and Plan: Blood plus pressure fluctuant 108/55 to 166/82. Heart rate 66. Metoprolol XL 50 mg continued. Monitor blood pressure closely initiate hold parameters. (8) Anxiety: Code(s): F41.9 - Anxiety disorder, unspecified Status: Acute Assessment and Plan: P.r.n. Valium ordered. Plan Code status: Full code Disposition: Home Subjective Date/time seen: 07/15/22 11:53 Exam Narrative: General: Moderately ill-appearing male sitting up in bed. No acute distress. HEENT: Normocephalic. Atraumatic. PERRL, EOMI. Conjunctiva are injected. Mild scleral icterus. Dry mucous membranes. Neck: Supple. No JVD. Respiratory: Lungs are clear to auscultation bilaterally, diminished in bibasilar lobes. Faint expiratory RUL anteriorly. No rales. Cardiovascular: Regular rate and rhythm with S1-S2. No murmurs, gallops or rubs. Gastrointestinal: Abdomen is obese and somewhat distended with positive bowel sounds. tender to palpation in the epigastric region. No guarding or rebound tenderness. Skin: Warm and dry. No jaundice. Poor turgor. Extremities: No cyanosis or clubbing. Trace pretibial edema bilaterally. Radial and pedal pulses intact. Neurological: Alert and oriented x3. Cranial nerves 2-12 are grossly intact. Fine tremors of the hands. No asterixis. No gr
[2022-07-15] MEDS: SODIUM CHLORIDE 0.9% IV 1,000 ML 75 ML IV CONT (12:05)
--- NOTE | 2022-07-15 14:21 | PM.DS ---
DS: Admitting Diagnosis Discharge Date 07/15/2022 Admitting Diagnosis Acute UGI bleeding DS: Discharge Diagnosis Discharge Diagnosis (1) GI bleed: Code(s): K92.2 - Gastrointestinal hemorrhage, unspecified Status: Acute (2) Alcoholic liver disease: Code(s): K70.9 - Alcoholic liver disease, unspecified Status: Acute (3) Chronic alcohol abuse: Code(s): F10.10 - Alcohol abuse, uncomplicated Status: Acute (4) Thrombocytopenia: Code(s): D69.6 - Thrombocytopenia, unspecified Status: Acute (5) Coagulopathy: Code(s): D68.9 - Coagulation defect, unspecified Status: Acute (6) Hypomagnesemia: Code(s): E83.42 - Hypomagnesemia Status: Acute (7) Hypertension: Code(s): I10 - Essential (primary) hypertension Status: Acute (8) Anxiety: Code(s): F41.9 - Anxiety disorder, unspecified Status: Acute DS: Summary Hospital Course Reason for hospitalization: Coffee-ground emesis Hospital Course: Mr. Farr was admitted July 13 with coffee-ground emesis and dark stools. He has a history of gastric ulcer and alcohol abuse. He was treated with bowel rest IV fluids and b.i.d. PPI IV. He had no further coffee-ground emesis. EGD on July 14 showed multiple small gastric ulcers without active bleeding or exposed vessels. By the following day he was tolerating soft bland diet. He had no further episodes of bleeding. hemoglobin remained relatively stable at 12.4 on day of admission 11.9 and 11.4 on the following day and 11.3 and the day of discharge. Transaminases and bilirubin remained elevated presumably due to chronic alcohol-induced hepatitis. Bilirubin was 2.9 at admission and 4.0 at discharge. AST was 141 on admission and 87 at discharge. ALT was 54 at admission and 43 at discharge. White blood cells were 4.8k admission and 4.3kat discharge. Platelet count was 67 K admission and 52 K at discharge. He was given Librium 50 mg p.o. every 6 hours during his hospitalization. Also was given folate and thiamine daily. He had no signs of alcohol withdrawal during his stay. He would benefit from an intensive outpatient alcohol rehabilitation program. Time Spent with Patient Time attestation: Total time spent providing and/or coordinating discharge services: Exam Narrative: HEENT: PERRL, sclerae nonicteric, pharyngeal mucosa pink and intact NECK: No JVD CHEST: Clear to auscultation. Normal effort. HEART: NL S1/S2, regular, no murmur ABDOMEN: BS+, soft, nontender, no mass, no bruits EXTREMITIES: No cyanosis, edema, or clubbing NEUROLOGIC: CN intact and symmetric to inspection. NO TREMORS. MUSCULOSKELETAL: Tone and strength symmetric. PSYCH: Alert. Oriented to person, place, and time. DS: Data Data Completed and Pending Pending studies at discharge: Pending at discharge 07/14/22 12:55 Surgical [PTH] Routine Labs on day of discharge: Labs from last 24 hours 07/15/22 07/15/22 05:59 05:59 WBC 4.3 L RBC 3.80 L Hgb 11.3 L Hct 35.6 L MCV 93.7 MCH 29.7 MCHC 31.7 L RDW 18.6 H Plt Count 52 L MPV 12.6 H % Immature Plt Fraction 9.3 Sodium 138 Potassium 3.6 Chloride 105 Carbon Dioxide 25 Anion Gap 8 BUN 15 Creatinine 0.60 L Estim Creat Clear Calc 148 Estimated GFR > 60 Glucose 87 Calcium 7.6 L Magnesium 1.7 Total Bilirubin 4.0 H AST 87 H ALT 43 Alkaline Phosphatase 109 Total Protein 6.0 L Albumin 2.9 L Discharge Plan Discharge Consulting providers: Ken Hines Discharging Clinician: [place] Patient Disposition: Home, Self-Care Activity: as tolerated Diet: heart healthy Discharge Instructions: No alcohol, aspirin, or NSAID's (ibuprofen, naproxen, diclofenac, etc) Stand Alone Forms: General Discharge Information Follow-up/Referrals: Carter Castaneda DO [Primary Care Provider] -
== END 2022-07-15 15:19 | disposition home or self-care (01) ==
LOC: ANHED 15:59 → ANH3MEDSUR 18:24
PROVIDERS: Internal Medicine Gastroenterology; Nurse Practitioner Family; Physician Assistant; Admitting Provider Student in an Organized Health Care Education/Training Program; Emergency Provider Emergency Medicine; PCP Internal Medicine; Visit Provider Internal Medicine
PROC: 0DJ08ZZ Inspection of Upper Intestinal Tract, Via Natural or Artificial Opening Endoscopic (ICD-10-PCS; CPT 43235; principal; 2022-07-14 14:00)
DX: K25.3 Acute gastric ulcer without hemorrhage or perforation (principal); K70.9 Alcoholic liver disease, unspecified; F10.10 Alcohol abuse, uncomplicated; D69.6 Thrombocytopenia, unspecified; D68.9 Coagulation defect, unspecified; E83.42 Hypomagnesemia; F41.9 Anxiety disorder, unspecified; R74.01 Elevation of levels of liver transaminase levels; E78.5 Hyperlipidemia, unspecified; I10 Essential (primary) hypertension; K74.60 Unspecified cirrhosis of liver; K76.89 Other specified diseases of liver; K80.20 Calculus of gallbladder without cholecystitis without obstruction; K76.0 Fatty (change of) liver, not elsewhere classified; Z85.46 Personal history of malignant neoplasm of prostate; Z90.79 Acquired absence of other genital organ(s); Z79.51 Long term (current) use of inhaled steroids; Z79.899 Other long term (current) drug therapy
CPT/HCPCS: 43239; 36415; 76705; 80053; 82550; 83735; 85014; 85018; 85025; 85027; 85055; 85610; 85730; 86850; 86900; 86901; 88305; 88342; 96361; 96365; 96374; 96375; 96376; 99285; A9270; C9113; G0378; J2405; J2704; J3360; J3411; J3475; J7030; J7060; J7120

== ENCOUNTER 2023-06-20 21:51 | Emergency (ER) | payer OTHER, SELFPAY ==
--- NOTE | ~2023-06-20 | CT_ITS ---
CT of the Abdomen and Pelvis: Indication: Flank pain Technique: 2.5 mm axial scans were obtained through the abdomen and pelvis following intravenous adm inistration of 100 cc of Omnipaque 350. Dose reduction technique was used on this scan by utilizing a utomated exposure control and iterative reconstruction technique. The dose-length product (DLP) was 1 562.34 mGy-cm. COMPARISON: 07/30/2016 Findings: Scans through the lung bases are unremarkable. Nodular contour of the liver suggests cirrhosis, with associated suspected fatty infiltration. Questi onable subtle heterogeneity focally in the anterior liver (axial images 54) 60). Spleen is enlarged m easuring 14.5 cm in length. Left lower quadrant varices are present. The pancreas, gallbladder, and adrenal glands are within normal limits. No evidence of aortic aneurysm. No lymphadenopathy. 4 mm proximal left ureteral stone is present with mild to moderate left hydronephrosis and left perin ephric stranding. Right kidney is unremarkable. No right renal or right ureteral stone. No right hydr onephrosis. No bowel obstruction or bowel wall thickening. There is no evidence to suggest acute appendicitis. Images through the pelvis were performed. Urinary bladder unremarkable. No pelvic mass evident. No as cites. Impression: 4 mm proximal left ureteral stone with mild to moderate left hydronephrosis and left perinephric stra nding. Cirrhotic liver with associated splenomegaly and varices. Questionable subtle heterogeneous area of focally in the anterior liver, as noted above. Underlying h epatocellular carcinoma is a consideration. MR of the liver to better assess for mass lesion is advis ed. Reviewed, dictated and finalized at [facility]. Impression: 4 mm proximal left ureteral stone with mild to moderate left hydronephrosis and left perinephric stranding. Cirrhotic liver with associated splenomegaly and varices. Questionable subtle heterogeneous area of focally in the anterior liver, as not ed above. Underlying hepatocellular carcinoma is a consideration. MR of the larry er to better assess for mass lesion is advised.
[2023-06-20 22:12] VITALS: BP 160/87; PULSE 85; RESP 14; TEMP 37.3; O2SAT 96
[2023-06-20 22:22] LABS: Basophils Absolute Auto 0.1 K/mm3 (0.0-0.1); Eosinophils Percent Auto 0.7 % (0-4.4); Hematocrit 42.6 % (42.0-52.0); Hemoglobin 14.2 g/dL (14.0-18.0); Immature Granulocyte Absolute 0.02 K/mm3 (0.00-0.031); Immature Granulocyte Percent A 0.3 % (0-0.5); Lymphocytes Absolute Auto 1.11 K/mm3 (0.9-3.2); Lymphocytes Percent Auto 18.3 % (18.3-44.2); Mean Corpuscular HGB Conc 33.3 g/dl (32-36); Mean Corpuscular Hemoglobin 32.1 pg (26-34); Mean Corpuscular Volume 96.4 fl (80-100); Mean Platelet Volume 10.6 fl (7.4-10.4); Monocytes Absolute Auto 0.8 K/mm3 (0.1-0.6); Monocytes Percent Auto 13.4 % (2.6-8.5); Neutrophils Percent Auto 66.3 % (45.5-73.1); Platelet Count Result 230 k/mm3 (150-375); Red Blood Count 4.42 M/mm3 (4.6-6.20); Red Cell Distribution Width 17.5 % (11.5-14.5); White Blood Count 6.1 K/mm3 (4.5-10.0)
[2023-06-20 22:35] LABS: Alanine Aminotransferase 44 U/L (6-50); Albumin Level 3.6 g/dL (3.5-5.1); Alkaline Phosphatase 114 U/L (38-126); Anion Gap 8 mmol/L (8-16); Aspartate Amino Transferase 78 U/L (17-59); Bilirubin,Total 1.9 mg/dL (0.2-1.3); Blood Urea Nitrogen 12 mg/dL (9-20); Calcium 8.9 mg/dL (8.4-10.2); Carbon Dioxide 21 mmol/L (22-30); Chloride 107 mmol/L (98-107); Estimated CRCL calculation 112 ml/min; Estimated Glomerular Filt Rate > 60; Glucose 99 mg/dL (65-110); Potassium 3.9 mmol/L (3.4-5.0); Sodium 136 mmol/L (137-145)
[2023-06-20 23:20] LABS: Appearance Urine Cloudy (Clear); Bacteria Urine None Seen /hpf; Bilirubin Urine Negative (Negative); Blood Urine 3+ (Negative); Color Urine Dark Yellow (Yellow); Glucose Urine UA Negative (Negative); Ketones Urine 1+ mg/dL (Negative); Leukocyte Esterase Ur Trace LEU/UL (Negative); Nitrate Urine Negative (Negative); Non Pathogenic Casts 0-2; Protein Urine Trace mg/dL (Negative); RBC Urine >100 /hpf (0-2); Specific Grav Ur 1.025 (1.001-1.035); Squamous Epithelial Cell Urine None seen /hpf (Few); WBC Urine 0-5 /hpf; pH Urine 6.5 (5.0-9.0)
[2023-06-20 23:32] LABS: Add Urine Microscopic? YES
--- NOTE | 2023-06-21 01:09 | ED.GENADULT ---
HPI - General Adult General Chief complaint: Back Pain/Injury Stated complaint: left flank pain Time Seen by Provider: 06/21/23 01:02 History of Present Illness HPI narrative: 62 year old male history of alcoholic cirrhosis, gastric ulcers presented with left sided flank pain. Per patient, he was in his usual state of health until earlier this evening. At this time he began having left sided flank pain associated with hematuria. He denied previous history of renal stones, fevers/chills, nausea/vomiting, chest pain, shortness of breath, dysuria, diarrhea. Related Data Allergies Allergy/AdvReac Type Severity Reaction Status Date / Time No Known Allergies Allergy Verified 03/13/23 09:41 Review of Systems Review of Systems: See HPI [facility] Past Medical History Medical History Alcoholic liver disease Arthritis Asthma Chronic alcohol abuse Gastric ulcer Gastroesophageal reflux disease Hyperlipidemia Hypertension Prostate cancer Surgical History Surgical History History of esophagogastroduodenoscopy History of hernia repair History of prostatectomy Family History Family History Mother Family history of Alzheimer's disease, Onset Age: 77 Sibling Patient's sister is in good health Family history of malignant neoplasm of breast in first degree relative Father Family history of thoracic aortic aneurysm Cerebrovascular accident, Onset Age: 62 Social History Social History Social History: Surrogate medical decision maker: Marla Klein, spouse. Code status: Full code. Smoking status: Never smoker Second hand tobacco smoke exposure: No Alcohol intake: current Drinks per week: 119 Alcohol use details: He patient drinks at least a 5th of hard liquor a day. Substance use: never Substance use type: does not use Living arrangements: with family Occupation/Education: retired Spiritual care concerns: No Exam Narrative: General: Alert, calm and cooperative, no acute distress, phonating, sitting comfortably during visit HEENT: Pupils equal round and reactive to light, extra ocular movements intact, no conjunctival injection, head atraumatic, neck supple without meningismus Cardiovascular: Regular rate and rhythm, no visible jugular venous distension Respiratory: Lungs clear to auscultation bilaterally, no wheezing/rales/rhonchi Abdominal: soft, non-tender, non-distended, no guarding, no rebound/peritoneal signs, no costovertebral tenderness to palpation Back: no midline tenderness to palpation, no step offs Extremities: No edema, palpable peripheral pulses, warm, well perfused, no tenderness to bilateral calves Neurological: Alert, moving all extremities symmetrically, ambulating without deficit Course Reevaluation(s) Reevaluation #1: Patient reassessed; reporting resolution of all symptoms. Physical exam benign, sitting comfortably, vitals stable. Date: 06/21/23 Time: : Vital Signs Vital signs: Vital Signs Temperature 99.1 F 06/20/23 22:12 Pulse Rate 85 06/20/23 22:12 Respiratory Rate 14 06/20/23 22:12 Blood Pressure 160/87 H 06/20/23 22:12 Pulse Oximetry 96 06/20/23 22:12 Temperature 99.1 F 06/20/23 22:12 Pulse Rate 70 06/21/23 03:40 Respiratory Rate 15 06/21/23 03:40 Blood Pressure 138/64 06/21/23 03:40 Pulse Oximetry 100 06/21/23 03:40 Medical Decision Making [facility] Narrative Medical decision making narrative: 62 year old male presented with acute onset left sided flank pain. Physical exam benign, abdomen soft, no CVA tenderness, vitals stable. Differential diagnosis includes but not limited to: nephrolithiasis vs pyelonephritis vs diverticulitis. CT abd/pelv notable for 3mm nephrolithiasis with obstruction. UA without evid
[2023-06-21] MEDS: MORPHINE SULFATE (*CRX) 4 MG/ML INJ IV PUSH (01:25)
[2023-06-21] MEDS: oxyCODONE/ACETAMINOPHEN (*CRX) 5-325 MG TABLET 1 TABLET PO (03:38)
[2023-06-21 03:40] VITALS: BP 138/64; PULSE 70; RESP 15; O2SAT 100
== END 2023-06-21 03:41 | disposition home or self-care (01) ==
PROVIDERS: Emergency Provider Emergency Medicine; PCP Internal Medicine
DX: N13.2 Hydronephrosis with renal and ureteral calculous obstruction (principal); K70.30 Alcoholic cirrhosis of liver without ascites; J45.909 Unspecified asthma, uncomplicated; E78.5 Hyperlipidemia, unspecified; I10 Essential (primary) hypertension; M19.90 Unspecified osteoarthritis, unspecified site; K21.9 Gastro-esophageal reflux disease without esophagitis; F10.10 Alcohol abuse, uncomplicated; Z85.46 Personal history of malignant neoplasm of prostate; Z90.79 Acquired absence of other genital organ(s); R93.2 Abnormal findings on diagnostic imaging of liver and biliary tract
CPT/HCPCS: 36415; 74177; 80053; 81001; 85025; 96365; 96375; 99284; A9270; J0696; J2270; Q9967

== ENCOUNTER 2023-07-11 15:20 | Outpatient (CLI) | payer OTHER, SELFPAY ==
--- NOTE | ~2023-07-11 | CT_ITS ---
EXAMINATION: CT abdomen pelvis wo con DATE: 07/11/2023 15:42 INDICATION: Left ureteral stone TECHNIQUE: Computed tomography (CT) of the abdomen and pelvis was performed without intravenous contr ast. The dose-length product (DLP) was 1172.93 mGy-cm. Automated exposure control and iterative recon struction technique were employed. COMPARISON: 06/01/2023 FINDINGS: Minimal dependent atelectasis is present in the lung bases. The heart size is normal. There is nodularity of the liver surface. Again noted is a subtle nodular area anteriorly in liver segment V. Cysts of the left hepatic lobe measure up to 1.8 cm. The spleen, pancreas, and adrenal glands are normal. There is wall calcification in the anterior aspect of the gallbladder. There has been interv al treatment or passage of the previously described left proximal ureteral stone. There is a 2 mm non obstructing stone of the right kidney lower pole. No pathologically enlarged abdominal or pelvic lymp h nodes are identified. No free intraperitoneal gas or evidence of bowel obstruction. The appendix is normal. There is a fat-containing umbilical hernia. There is moderate lumbar spondylosis. IMPRESSION: 1. Interval treatment or passage of the previously described left proximal ureteral stone. 2. Nonobstructing right nephrolithiasis. 3. Cirrhosis with persistent possible mass of the right hepatic lobe. Further evaluation by MRI witho ut and with contrast is recommended. Reviewed, dictated and finalized at location [facility]. IMPRESSION: 1. Interval treatment or passage of the previously described left proximal uret eral stone. 2. Nonobstructing right nephrolithiasis. 3. Cirrhosis with persistent possible mass of the right hepatic lobe. Further e valuation by MRI without and with contrast is recommended.
--- NOTE | ~2023-07-11 | XR_ITS ---
EXAMINATION: XR abdomen/kub 1V INDICATION: Left ureteral stone TECHNIQUE: Supine views of the abdomen were obtained on 2 radiographs. COMPARISON: CT from today FINDINGS: No urolithiasis is identified. The punctate right kidney stone described on CT is not ident ified. There are phleboliths of the pelvis. The bowel gas pattern is normal. There is moderate lumbar spondylosis. IMPRESSION: 1. No urolithiasis identified. Reviewed, dictated and finalized at location [facility].
== END 2023-07-11 15:21 | disposition home or self-care (01) ==
PROVIDERS: PCP Internal Medicine; Visit Provider Nurse Practitioner Adult Health
DX: N20.1 Calculus of ureter (principal); N20.0 Calculus of kidney; K74.69 Other cirrhosis of liver
CPT/HCPCS: 74018; 74176

== ENCOUNTER 2023-08-31 10:39 | Outpatient (CLI) | payer OTHER, SELFPAY ==
--- NOTE | ~2023-08-31 | MR_ITS ---
EXAMINATION: MR abdomen wo/w con DATE: 08/31/2023 11:57 INDICATION: Hepatomegaly TECHNIQUE: Magnetic resonance imaging (MRI) of the abdomen was performed without and with 20 mL Multi crystal intravenous contrast. Sequences included coronal T2-weighted SS-FSE, coronal and axial FS 2D-F IESTA, axial STIR FSE, axial T2-weighted SS-FSE, axial T2-weighted FS SS-FSE, axial diffusion-weighte d SE, axial dual-echo T1-weighted FSPGR, and axial and coronal T1-weighted LAVA. Postcontrast axial T 1-weighted LAVA images were obtained in a time course. Postcontrast coronal T1-weighted LAVA images w ere obtained. COMPARISON: CT abdomen pelvis dated 07/11/23 FINDINGS: Mild cardiomegaly. Linear increased signal in the dependent lower lobes consistent with mild discoid atelectasis. No pericardial or pleural effusion. Diffuse hepatic steatosis with signal dropout on opp osed phase imaging. There is also cirrhosis with liver surface nodularity. There are few T2 hyperinte nse nonenhancing cysts in the left hepatic lobe the largest measuring 2.0 cm. Recanalized umbilical v ein a few paraesophageal varices and a large serpiginous collateral vessel extending between the supe rior mesenteric vein and the inferior vena cava via what appears to represent the right gonadal vein consistent with secondary portal venous hypertension. Spleen, pancreas, gallbladder, right kidney and bilateral adrenal glands are normal. 1.6 cm T2 hyperintense nonenhancing cyst at the lower pole of t he left kidney. Visualized portions of the bowels including the appendix are normal. No pathologicall y enlarged abdominal or pelvic lymphadenopathy. Visualized portions of the bladder is unremarkable. T he uterus is not identified and has likely been surgically resected. Mild lumbar levocurvature with m ild spondylosis. IMPRESSION: 1. Diffuse hepatic steatosis and cirrhosis. 2. Secondary portal venous hypertension with multiple portosystemic collaterals. 3. Cardiomegaly. Reviewed, dictated and finalized at location A. IMPRESSION: 1. Diffuse hepatic steatosis and cirrhosis. 2. Secondary portal venous hypertension with multiple portosystemic collaterals . 3. Cardiomegaly.
== END 2023-08-31 10:40 | disposition home or self-care (01) ==
PROVIDERS: PCP Internal Medicine; Visit Provider Internal Medicine
DX: R16.0 Hepatomegaly, not elsewhere classified (principal); I51.7 Cardiomegaly; K76.0 Fatty (change of) liver, not elsewhere classified
CPT/HCPCS: 74183; A9577

== ENCOUNTER 2024-08-09 10:59 | Emergency (ER) | payer OTHER, SELFPAY ==
--- NOTE | 2024-08-09 11:15 | PC.NURSE ---
Patient states he was given a script for oxycodone from his PCP yesterday and took one this morning with no relief. Patient began vomiting when he got to the room.
[2024-08-09 11:29] VITALS: BP 173/70; PULSE 85; RESP 20; TEMP 36.6; O2SAT 96
--- NOTE | 2024-08-09 12:33 | PC.NURSE ---
Patient had RN remove his IV and walked out before seeing provider. Patient's family states We are going to go to a hospital that will take us . Patient left prior to getting any paperwork signed. patient ambulated out of department with steady gate.
--- NOTE | 2024-08-09 12:35 | PC.NURSE ---
pt left the dept with . stated will go somewhere where someone will see him Peripheral access was removed. angry at being in room and no one came to see him but the nurse in 90 mins
== END 2024-08-09 12:54 | disposition left against medical advice (07) ==
LOC: ANHED 12:36
PROVIDERS: PCP Internal Medicine
DX: M54.9 Dorsalgia, unspecified (principal)
CPT/HCPCS: 99199

== ENCOUNTER 2024-12-22 09:26 | Outpatient (CLI) | payer OTHER, SELFPAY ==
[2024-12-22 09:59] LABS: Hematocrit 34.4 % (42.0-52.0); Hemoglobin 11.9 g/dL (14.0-18.0); Immature Platelet Fraction Pct 3.2 % (0.9-11.2); Mean Corpuscular HGB Conc 34.6 g/dl (32-36); Mean Corpuscular Hemoglobin 37.3 pg (26-34); Mean Corpuscular Volume 107.8 fl (80-100); Mean Platelet Volume 10.7 fl (7.4-10.4); Platelet Count Result 94 k/mm3 (150-375); Red Blood Count 3.19 M/mm3 (4.6-6.20); Red Cell Distribution Width 18.4 % (11.5-14.5); White Blood Count 4.9 K/mm3 (4.5-10.0)
[2024-12-22 10:10] LABS: Alanine Aminotransferase 35 U/L (6-50); Albumin Level 2.4 g/dL (3.5-5.1); Alkaline Phosphatase 286 U/L (38-126); Anion Gap 7 mmol/L (4-12); Aspartate Amino Transferase 128 U/L (17-59); Bilirubin,Total 5.7 mg/dL (0.2-1.3); Blood Urea Nitrogen 8 mg/dL (9-20); Calcium 7.6 mg/dL (8.4-10.2); Carbon Dioxide 29 mmol/L (22-30); Chloride 105 mmol/L (98-107); Cholesterol 183 mg/dL (0-200); Estimated Glomerular Filt Rate > 60; Glucose 98 mg/dL (65-110); HDL Direct 55 mg/dL; Potassium 3.6 mmol/L (3.4-5.0); Sodium 141 mmol/L (137-145); Triglycerides 131 mg/dL (<150)
--- OUTSIDE RECORDS SUMMARY | 2024-12-22 10:13 | XMS_ITS | Clinical Summary ---
Author Organization [facility] Address [address] [place] [address]. [place] [address] [place] [address] Care Team Providers Care Budget Engineer Name Role Phone Carter Castaneda MD Primary Care Provider [phone] Social History Tobacco Use Types Packs/Day Years Used Date Smoking Tobacco: Never Assessed Sex and Gender Information Value Date Recorded Sex Assigned at Not on file Legal Sex Male 12:14 AM CDT Gender Identity Not on file Sexual Orientation Not on file Plan of Treatment Health Maintenance Due Date Last Done Comments Colorectal Cancer Screening Colonoscopy (10 Years) 1960 Hepatitis C 1977 DTaP, Tdap and Td Vaccines ( 1 - Tdap) 1978 Zoster Vaccines (1 of 2) 2009 COVID-19 Vaccine ( - 2023-2 5 season) 2024 Influenza Adult (#1) 2024 Pneumococcal Vaccine: 65+ Ye ars (1 of 1 - PCV) 2024 RSV Immunization or 60+ Years (1 - 1-dose 75+ series) 2034 Meningococcal B Vaccine Aged Out No l onger eligible based on patient's age to complete this topic Meningococcal Vaccine Aged Out No prince tish eligible based on patient's age to complete this topic Pneumococcal Vaccine: Pediat rics (0 to 5 Years) and At-Risk Patients (6 to 64 Years) Aged Out No longer eligible b ased on patient's age to complete this topic RSV Immunizations Under 20 Months Aged Out No longer eligible based on patient's age to complete this topic Care Teams Budget Engineer Relationship Specialty Start Date End Date Carter Castaneda MD [address] [place] [address] PCP - General 5/27/11
--- OUTSIDE RECORDS SUMMARY | 2024-12-22 10:13 | XMS_ITS | CONTINUITY OF CARE DOCUMENT ---
Author Name sonam masters Address Unknown Organization [facility] Address [id number] [place] [address] [address] [place] [address] Phone [phone] Care Team Providers Care Jumpbasting Lining Baster Name Role Phone Humberto ALMARAZ, Rodrigo Unavailable TORY DALE MD Unavailable INSURANCE PROVIDERS Payer name Policy type / Coverage type [employer] party ID [facility] [id number]
--- OUTSIDE RECORDS SUMMARY | 2024-12-22 10:13 | XMS_ITS | Referral Summary ---
Author Organization [facility] [address] Address [address] [place] [address] Care Team Providers Care Director Banking Name Role Phone Carter Castaneda MD Primary Care Provider [phone] Allergies No known active allergies Active Problems Problem Noted Date Diagnosed Date Pain in testicle 12/30/2013 Overview (03/07/2018): Description: Right Malignant neoplasm of prostate 11/30/2009 Overview (03/07/2018): Description: Lap RRP 12/23/2009--[place]: 3+4=7--Margins: positive--Stage: T2c/NO/MO Social History Tobacco Use Types Packs/Day Years Used Date Smoking Tobacco: Never Personal Safety Answer Date Recorded Have you ever been in or are you currently in a harmful physical or emotional relationship or is someone making you feel afraid or unsafe? 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[employer] Gender Identity Not on file Sexual Orientation Not on file Last Filed Vital Signs Vital Sign Reading Time Taken Comments Blood Pressure 192/83 08/09/2024 6:07 PM CDT Pulse 89 08/09/2024 6:07 PM CDT Temperature 36.7 ??C (98.1 ??F) 08/09/2024 1:06 PM CD T Respiratory Rate 24 08/09/2024 6:07 PM CDT Oxygen Saturation 93% 08/09/2024 6:07 PM CDT Inhaled Oxygen Concentration - - Weight 136.7 kg (301 lb 5.9 oz) 08/09/2024 1:06 PM CDT Height 175.3 cm (5' 9 ) 08/09/2024 1:06 PM CDT Body Mass Index 44.5 08/09/2024 1:06 PM CDT Plan of Treatment Not on file Procedures Procedure Name Priority Date/Time Associated Diagnosis Comments CT ABDOMEN PELVIS W CONTRAST ED 08/09/2024 4:10 PM CDT from Last 3 Months or Most Recently Relevant to Health Maintenance Results * CT Abdomen Pelvis W Contrast (08/09/2024 4:10 PM CDT) Anatomical Region Laterality Modality Body N/A Computed Tomogra phy 08/09/2024 4:18 PM CDT Narrative 08/09/2024 4:36 PM CDT EXAM DESCRIPTION: ?? CT ABDOMEN PELVIS W CONTRAST REASON FOR STUDY: ?? Abdominal pain, acute, nonlocalized ?? Pt presents to ED for right sided flank pain that started on ? Endorses: right sided flank pain, nausea/vomiting, subjective fevers/chills ?? Denies: chest pain/sob, diarrhea, constipation, urinary complaints, lightheadedness/dizziness, cough/congestion ??RR even/nl. NAD. AAOx4. Ambulatory to triage with steady gait. Took oxycodone at 0600 with slight relief. Pt requesting anti-nausea meds at this time. ? PMHx: kidney stones ?? TECHNIQUE: CT scan of the abdomen and pelvis performed with intravenous and ?? without ??oral contrast using helical scanning technique with dynamic intravenous contrast injection. Reconstructed coronal and sagittal MPR images reviewed. All images stored on PACS. Automated exposure control was used as a dose optimization technique for this examination. CONTRAST TYPE/DOSE: ?? 91mL of IOVERSOL 350 MG IODINE/ML INTRAVENOUS SYRINGE ?? injected via ?? intravenous COMPARISON: None available. FINDINGS: LOWER CHEST: ?? There is linear atelectasis at the lung bases. ?? Partially imaged cardiomegaly. LIVER: The liver has shrunken heterogeneous appearance with nodular contour. ?? Few indeterminate hypodense areas, for example in the anterior margin measuring 3 cm (series 3, image 47) and in the left lobe measuring up to 1.1, 0.7 and 0.3 cm (series 3, image 31). ??There are multiple varices in the abdomen including at the gastroesophageal junction. GALLBLADDER: ?? Distended gallbladder. ??Eccentric nondependent calcification along the gallbladder wall could be a gallstone or possibly calcification in the gallbladder wall. SPLEEN: ?? Homogeneous CT appearance, maximum AP dimensions of 13 cm. PANCREAS: ?? Enhances homogeneously, no adjacent fluid collection. ?? ADRENALS: ?? Near symmetric appearance. KIDNEYS/URINARY TRACT: ?? Right renal tiny, 0.1-0.2 cm nonobstructing calculi. ?? Left renal anterior cortex 1.3 cm fluid density focus in keeping with cyst. ?? Remainder of the subcentimeter hypodensities in both kidneys are too small to characterize. ?There is urinary bladder wall thickening. ??Tiny focus at the bladder dome could be a urachal remnant. GI: ?? The evaluation is limited without oral contrast. ??Bowel pathology including wall thickening and inflammation could be obscured. ??There is a small hiatal hernia. ??Thickening of the distal esophagus can be seen with esophagitis in the proper clinical scenario. ??Portions of the stomach, small bowel and large bowel are under distended for adequate evaluation. ??The appendix is nonacute. ??Scattered colonic diverticulosis without acute diverticulitis. ??No bowel obstruction. PERITONEUM: ?? No significant free fluid in the abdomen or intraperitoneal free air. RETROPERITONEUM: ?? Subcentimeter retroperitoneal lymph nodes are considered nonspecific by CT size criteria. ??A few maya hepatis lymph nodes are presumed to be reactive given hepatocellular disease. ??Attention on follow-up. REPRODUCTIVE: ?? A definite prostate gland is not seen, request clinical correlation. VASCULATURE: ?? Calcified plaque in the abdominal aorta and major branch vessels. ??The evaluation of patency of the major branch vessels is limited due to the timing of the bolus. ??If there is concern for vascular pathology then recommend dedicated CT angiogram. MUSCULOSKELETAL: ?? There is small fat containing umbilical and bilateral inguinal hernias. ??Bilateral sacroiliac joint degenerative changes with spur formation. ??Scattered Schmorl's nodes in the lumbar spine. ??Thoracolumbar degenerative changes. ??Osseous spinal canal stenosis is most noticeable at L3-L4 and L4-L5. ??Osseous neural foraminal stenosis ranging moderate to severe from L3-L4 through L5-S1. IMPRESSION: ?? 1. ?? Tiny nonobstructing right renal calculi. 2. ?? Urinary bladder wall thickening, under distension versus cystitis. ?? Please correlate with urinalysis. 3. ?? Cirrhotic liver with varices, correlate for portal hypertension. ?? Multiple indeterminate liver lesions and recommend dedicated contrast-enhanced liver protocol MRI. 4. ?? Distended gallbladder. ??If there is concern for gallbladder pathology then please correlate laboratory data and dedicated ultrasound. 5. ?? Additional findings as above. THIS IS AN ELECTRONICALLY VERIFIED FINAL REPORT 08/09/2024 4:36 PM - Electronically signed by ??Yandel WALKER D: ??08/09/2024 4:36 PM T: Report ID: [id number] Reading Location: ??[id number] Procedure Note Yandel Reece, DO - 08/09/2024 EXAM DESCRIPTION: CT ABDOMEN PELVIS W CONTRAST REASON FOR STUDY: Abdominal pain, acute, nonlocalized Pt presents to ED for right sided flank pain that started on Endorses: right sided flank pain, nausea/vomiting, subjectivefevers/chills Denies: chest pain/sob, diarrhea, constipation, urinary complaints, lightheadedness/dizziness, cough/congestion RR even/nl. NAD. AAOx4. Ambulatory to triage with steady gait. Took oxycodone at 0600 with slight relief. Pt requesting anti-nausea meds at this time. PMHx: kidneystones TECHNIQUE: CT scan of the abdomen and pelvis performed with intravenousand without oral contrast using helical scanning technique with dynamic intravenous contrast injection. Reconstructed coronal and sagittal MPRimages reviewed. All images stored on PACS. Automated exposure control was usedas a dose optimization technique for this examination. CONTRAST TYPE/DOSE: 91mL of IOVERSOL 350 MG IODINE/ML INTRAVENOUSSYRINGE injected via intravenous COMPARISON: None available. FINDINGS: LOWER CHEST: There is linear atelectasis at the lung bases. Partially imaged cardiomegaly. LIVER: The liver has shrunken heterogeneous appearance with nodularcontour. Few indeterminate hypodense areas, for example in the anterior margin measuring 3 cm (series 3, image 47) and in the left lobe measuring up to1.1, 0.7 and 0.3 cm (series 3, image 31). There are multiple varices in the abdomen including at the gastroesophageal junction. GALLBLADDER: Distended gallbladder. Eccentric nondependentcalcification along the gallbladder wall could be a gallstone or possibly calcificationin the gallbladder wall. SPLEEN: Homogeneous CT appearance, maximum AP dimensions of 13 cm. PANCREAS: Enhances homogeneously, no adjacent fluid collection. ADRENALS: Near symmetric appearance. KIDNEYS/URINARY TRACT: Right renal tiny, 0.1-0.2 cm nonobstructingcalculi. Left renal anterior cortex 1.3 cm fluid density focus in keeping withcyst. Remainder of the subcentimeter hypodensities in both kidneys are too smallto characterize. There is urinary bladder wall thickening. Tiny focus atthe bladder dome could be a urachal remnant. GI: The evaluation is limited without oral contrast. Bowel pathology including wall thickening and inflammation could be obscured. There is a small hiatal hernia. Thickening of the distal esophagus can be seen with esophagitis in the proper clinical scenario. Portions of the stomach,small bowel and large bowel are under distended for adequate evaluation. The appendix is nonacute. Scattered colonic diverticulosis without acute diverticulitis. No bowel obstruction. PERITONEUM: No significant free fluid in the abdomen or intraperitonealfree air. RETROPERITONEUM: Subcentimeter retroperitoneal lymph nodes areconsidered nonspecific by CT size criteria. A few maya hepatis lymph nodes arepresumed to be reactive given hepatocellular disease. Attention on follow-up. REPRODUCTIVE: A definite prostate gland is not seen, request clinical correlation. VASCULATURE: Calcified plaque in the abdominal aorta and major branch vessels. The evaluation of patency of the major branch vessels is limiteddue to the timing of the bolus. If there is concern for vascular pathologythen recommend dedicated CT angiogram. MUSCULOSKELETAL: There is small fat containing umbilical and bilateral inguinal hernias. Bilateral sacroiliac joint degenerative changes withspur formation. Scattered Schmorl's nodes in the lumbar spine. Thoracolumbar degenerative changes. Osseous spinal canal stenosis is most noticeable at L3-L4 and L4-L5. Osseous neural foraminal stenosis ranging moderate tosevere from L3-L4 through L5-S1. IMPRESSION: 1. Tiny nonobstructing right renal calculi. 2. Urinary bladder wall thickening, under distension versus cystitis. Please correlate with urinalysis. 3. Cirrhotic liver with varices, correlate for portal hypertension. Multiple indeterminate liver lesions and recommend dedicatedcontrast-enhanced liver protocol MRI. 4. Distended gallbladder. If there is concern for gallbladder pathology then please correlate laboratory data and dedicated ultrasound. 5. Additional findings as above. THIS IS AN ELECTRONICALLY VERIFIED FINAL REPORT 08/09/2024 4:36 PM - Electronically signed by Yandel WALKER T: Report ID: [id number] Reading Location: [place] [address] PROCEDURES Final Result from Last 3 Months or Most Recently Relevant to Health Maintenance Insurance [facility] PREFERR[facility] Care Teams Director Banking Relationship Specialty Start Date End Date Carter Castaneda MD [address] [facility] [address] [place] [address] PCP - General Internal Medicine 08/07/19
--- OUTSIDE RECORDS SUMMARY | 2024-12-22 10:13 | XMS_ITS | Clinical Summary ---
Author Organization [facility] [address] Address [address] [place] [address] Care Team Providers Care Acid Patroller Name Role Phone Carter Castaneda MD Primary Care Provider +1- [phone] Allergies No known active allergies Active Problems Problem Noted Date Diagnosed Date Pain in testicle 12/30/2013 Overview (03/07/2018): Description: Right Malignant neoplasm of prostate 11/30/2009 Overview (03/07/2018): Description: Lap RRP 12/23/2009--[place]: 3+4=7--Margins: positive--Stage: T2c/NO/MO Surgical History Surgery Date Site/Laterality Comments [place] PROSTECT RETROPUB RAD W/W O NRV SPAR & BI PLV LYM Prostatect Retropubic Radical W/ Bilat Pelv Lymphadenectomy - 12-23-09. (Added by TW Conv) Medical History Medical History Date Comments Personal history of other di seases of the circulatory system History of hypertension - (A dded by TW Conv) Retention of urine Incomplete em ptying of bladder - (Added by TW Conv) Family History Medical History Relation Name Comments Aneurysm Father Aneurysm - (Add ed by TW Conv) Lung cancer Father Family history of lung cancer - (Added by TW Conv) Relation Name Status Comments Father Social History Tobacco Use Types Packs/Day Years Used Date Smoking Tobacco: Never Personal Safety Answer Date Recorded Have you ever been in or are you currently in a harmful physical or emotional relationship or is someone making you feel afraid or unsafe? 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 Gender Identity Not on file Sexual Orientation Not on file Obstetrics History Last Filed Vital Signs Vital Sign Reading [...] 08/09/2024 1:06 PM CDT Plan of Treatment Health Maintenance Due Date Last Done Comments Colon Cancer Screening-Colonoscopy 1959 Depression Screening 1959 Fall Risk Assessment 1959 Hepatitis C Screening 1959 Prostate Cancer Screening-PSA 1959 DTaP/Tdap/Td Vaccine (1 - Tdap) 1970 Hepatitis B Screening 1977 Zoster Vaccine (1 of 2) 2009 Covid-19 Vaccine (2023-2 5 season) 2024 08/23/2023, 10/10/2022, 05/03/2022, Additional history exists Influenza Vaccine (#1) 2024 , 08/26/2022, 09/17/2020, Additional history exists Abdominal Aortic Aneurysm (A AA) Screen 2024 08/09/2024 Pneumococcal vaccine 65+ (1 of 1 - PCV) 2024 Well Visit 65+ 2024 Procedures Procedure Name Priority Date/Time Associated Diagnosis [...] 4:36 PM - Electronically signed by ??Yandel Reece D.O. AP D: ??08/09/2024 4:36 PM T: Report ID: [id number] Reading Location: ??[id number] Procedure Note Yandel Reece, DO - 08/09/2024 [...] signed by Yandel WALKER T: Report ID: [id number] Reading Location: [place] [address] PROCEDURES Final Result from Last 3 Months or Most Recently Relevant to Health Maintenance Insurance PENDING SALE TO [facility] PREFERRED [employer]REFERRED [address] [place] [address] Care Teams Acid Patroller Relationship Specialty Start Date End Date Carter Castaneda MD [address] [facility] [address] [facility] [address] [place] [address] PCP - General Internal Medicine 08/07/19
[2024-12-22 10:21] LABS: LDL Cholesterol Direct 40 mg/dL
[2024-12-22 10:46] LABS: Prostate Specific Antigen < 0.1 ng/mL (< OR = 4.0)
== END 2024-12-22 09:27 | disposition home or self-care (01) ==
PROVIDERS: PCP Nurse Practitioner; Visit Provider Nurse Practitioner
DX: Z00.00 Encounter for general adult medical examination without abnormal findings (principal); E78.5 Hyperlipidemia, unspecified; R53.83 Other fatigue; Z12.5 Encounter for screening for malignant neoplasm of prostate
CPT/HCPCS: 36415; 80053; 80061; 84153; 84443; 85027; 85055; G0103